=== PATIENT | female | born 1990 | race Caucasian/White ===

== ENCOUNTER → 2022-12-28 16:53 | Outpatient (CLI) | payer OTHER, SELFPAY ==
--- NOTE | 2022-12-28 16:55 | DI.US.S_ITS ---
PROCEDURE: US OB <= 14 WEEKS FETUS INDICATIONS: DATING OUTSIDE/PRIOR DATING DATA: Last menstrual period (LMP): Unknown. LMP-based estimated date of delivery (NISREEN): Unknown. First dating scan (date and location): 12/28/2022. Estimated date of delivery (NISREEN) from first dating scan: 08/20/2023. TECHNIQUE: Real-time scanning was performed of the fetus and maternal pelvic organs, with image documentation. Endovaginal scanning was also performed to better visualize the fetus and maternal ovaries. COMPARISON: None. FINDINGS: Embryo: Single live intrauterine is present with crown rump length measuring 6 mm corresponding to 6 weeks 3 days. There is a questionable appearance of small subchorionic hemorrhage measuring approximately 8 mm. Heart rate: 104 beats per minute Maternal organs: Ovaries demonstrate right corpus luteal cyst. IMPRESSION: Single live intrauterine with ultrasound gestational age of 6 weeks 3 days. Note heart tones are measured at 104 beats per minute. Follow-up is recommended. Questionable small subchorionic hemorrhage. We strive to produce accurate, complete, and clear reports of imaging services. To assist us in improving patient care, this report was composed using standard report templates and voice recognition software. Therefore, it may contain abnormal punctuation, insertions and/or omissions. Occasional wrong-word or sound-alike substitutions may occur. Though we review the report and make efforts to correct it, we do recommend that the report be read carefully in proper context to recognize any text inaccuracies. Dictated by: Francesca Gillette M.D. on 12/29/2022 at 16:28 Approved by: Francesca Gillette M.D. on 12/29/2022 at 16:30
== END ==
PROVIDERS: Referring Provider Obstetrics & Gynecology; Visit Provider Obstetrics & Gynecology
DX: O20.0 Threatened abortion (principal); Z3A.01 Less than 8 weeks gestation of pregnancy
CPT/HCPCS: 76801; 76817

== ENCOUNTER → 2023-01-10 15:14 | Outpatient (CLI) | payer OTHER, SELFPAY ==
[2023-01-10 21:18] LABS: Urine N gonorrhoeae NOT DETECTED
[2023-01-10 21:29] LABS: Urine Chlamydia NOT DETECTED
== END ==
PROVIDERS: Visit Provider Specialist
DX: Z34.81 Encounter for supervision of other normal pregnancy, first trimester (principal); Z3A.09 9 weeks gestation of pregnancy
CPT/HCPCS: 87491; 87591

== ENCOUNTER → 2023-02-07 11:54 | Outpatient (CLI) | payer OTHER, SELFPAY ==
[2023-02-07 12:28] LABS: Miscellaneous to LabCorp NATERA KIT
[2023-02-07 13:07] LABS: Add Manual Diff / Slide Review NO; Basophils Absolute Auto 0 /uL (0-100); Basophils Percent Auto 0.2 % (0-2); Eosinophils Absolute Auto 100 /uL (0-450); Eosinophils Percent Auto 0.5 % (2-4); Hematocrit 37.3 % (36-46); Hemoglobin 12.7 g/dL (12.0-16.0); Lymphocytes Absolute Auto 2100 /uL (1100-4500); Mean Corpuscular Volume 79.5 fL (80-100); Monocytes Absolute Auto 700 /uL (0-900); Monocytes Percent Auto 7.1 % (3-14); Neutrophils Absolute Auto 7600 /uL (1500-7000); Neutrophils Percent Auto 72.2 % (50-75); Platelet Count 344 X10^3/uL (150-400); Red Blood Cell Count 4.69 X10^6/uL (4.0-5.2); Red Cell Distribution Width 12.6 % (11.6-14.8); White Blood Cell Count 10.6 X10^3/uL (4.5-11.0)
[2023-02-07 13:37] LABS: Alanine Aminotransferase 25 IU/L (<35); Aspartate Aminotransferase 21 IU/L (14-36); BUN Creatinine Ratio 17.9 (6-22); Blood Urea Nitrogen 10 mg/dL (7-17); Estimated Glomerular Filt Rate > 60 mL/min (>60); Uric Acid 3.2 mg/dL (2.5-6.2)
[2023-02-07 16:16] LABS: Protein (Total) Urine Random 15 mg/dL (0-12)
[2023-02-08 10:51] LABS: Varicella IgG Antibody 554 index (Immune >165)
[2023-02-09 03:23] LABS: RPR Screen Non Reactive (Non Reactive)
[2023-02-09 16:21] LABS: Hepatitis B Surface Antigen NEGATIVE s/c (NEGATIVE); Rubella Antibody IgG 15.2 IU/mL (>15)
[2023-02-09 16:46] LABS: HIV 1 & 2 Ab/Ag 4th Gen Combo NEGATIVE (NEGATIVE); Hep C Virus Ab w/Reflex Quant NEGATIVE s/c (NEGATIVE)
== END ==
PROVIDERS: Referring Provider Obstetrics & Gynecology; Visit Provider Obstetrics & Gynecology
DX: O09.511 Supervision of elderly primigravida, first trimester (principal); Z34.81 Encounter for supervision of other normal pregnancy, first trimester
CPT/HCPCS: 36415; 80055; 82565; 84156; 84450; 84460; 84520; 84550; 86787; 86803; 86850; 86900; 86901; 87086; 87389

== ENCOUNTER → 2023-03-07 11:49 | Outpatient (CLI) | payer OTHER, SELFPAY ==
[2023-03-10 22:09] LABS: AFP Value 30.6 ng/mL (.); Gest Age on Col Date 16.3 weeks (.); Gestational Age As provided (.); Insulin Dep Diabetes No (.); OSBR Risk 1IN 10000 (.); Results Report (.); Test Results *Screen Negative* (.)
== END ==
PROVIDERS: Referring Provider Obstetrics & Gynecology; Visit Provider Obstetrics & Gynecology
DX: Z34.82 Encounter for supervision of other normal pregnancy, second trimester (principal); Z3A.16 16 weeks gestation of pregnancy
CPT/HCPCS: 36415; 82105

== ENCOUNTER → 2023-03-31 12:02 | Outpatient (CLI) | payer OTHER, SELFPAY ==
--- NOTE | 2023-03-31 12:04 | DI.US.S_ITS ---
PROCEDURE: US OB >= 14 WEEKS FETUS INDICATIONS: Anatomy scan OUTSIDE/PRIOR DATING DATA: Last menstrual period (LMP): Unknown. LMP-based estimated date of delivery (NISREEN): Unknown. First dating scan (date and location): 12/28/2022. Estimated date of delivery (NISREEN) from first dating scan: 08/20/2023. The calculations are made using the ultrasound NISREEN of 08/20/2023. TECHNIQUE: Real-time scanning was performed of the fetus, with image documentation and biometric measurements. COMPARISON: [facility], US, US OB >= 14 WEEKS FETUS, 03/07/2023, 11:37. FINDINGS: General: A single living intrauterine gestation is present. Presentation: Breech. Placenta: Placental position is anterior fundal, without previa. Amniotic fluid index: 10 cm, normal range is 5-24 cm. Single deepest vertical pocket is 2.7 cm. heart rate: 137 beats per minute. Maternal cervical canal: 4 cm long. Normal lower limit is 2.5 cm. biometrics: Biparietal diameter: 4.6 cm, 20 weeks 1 day Head circumference: 17.0 cm, 19 weeks 4 days Abdominal circumference: 14.7 cm, 20 weeks 0 days Femur length: 3.2 cm, 20 weeks 0 days Clinically estimated gestational age: 19 weeks 5 days Composite gestational age from present scan: 20 weeks 0 days Estimated weight and percentile: 323 g, 68th percentile Anatomic survey: Neuro: Ventricles are non-dilated at less than 10 mm. Cisterna magna is normal at 3-11 mm. Cerebellum is normal in size and morphology. Nuchal skin fold: Normal at less than 6 mm between 14-21 weeks gestational age. Face: Nose and lips, facial profile are normal. Spine: No evidence for spina bifida. Heart: 4-chambered heart is present. Outflow tracts are not well seen. Diaphragm: Diaphragm is intact. Stomach: Left-sided stomach is present. Kidneys: No hydronephrosis. Normal is less than 5 mm in 2nd trimester, less than 7 mm in 3rd trimester. Cord: 3-vessel cord has orthotopic insertion. Bladder: Normal in size. Extremities: All 4 extremities identified. IMPRESSION: 1. Swift living intrauterine at 20 weeks 0 days based on today's ultrasound. Fetus is in the 68th percentile for weight. 2. Normal placenta and amniotic fluid. 3. cardiac outflow tracts are not well seen. Otherwise normal anatomic survey. Recommend follow-up OB ultrasound. We strive to produce accurate, complete, and clear reports of imaging services. To assist us in improving patient care, this report was composed using standard report templates and voice recognition software. Therefore, it may contain abnormal punctuation, insertions and/or omissions. Occasional wrong-word or sound-alike substitutions may occur. Though we review the report and make efforts to correct it, we do recommend that the report be read carefully in proper context to recognize any text inaccuracies. Dictated by: Benjamín Salinas M.D. on 03/31/2023 at 20:14 Approved by: Benjamín Salinas M.D. on 03/31/2023 at 20:23
== END ==
PROVIDERS: Referring Provider Obstetrics & Gynecology; Visit Provider Obstetrics & Gynecology
DX: Z34.92 Encounter for supervision of normal pregnancy, unspecified, second trimester (principal); Z3A.20 20 weeks gestation of pregnancy
CPT/HCPCS: 76811

== ENCOUNTER → 2023-04-14 11:25 | Outpatient (CLI) | payer OTHER, SELFPAY ==
--- NOTE | 2023-04-14 11:26 | DI.US.S_ITS ---
PROCEDURE: US OB FOLLOW UP INDICATIONS: OUTFLOW TRACTS NOT VISUALIZED on anatomy study from 03/31/2023 OUTSIDE/PRIOR DATING DATA: Last menstrual period (LMP): Unknown. LMP-based estimated date of delivery (NISREEN): Unknown. First dating scan (date and location): 12/28/2022. Estimated date of delivery (NISREEN) from first dating scan: 08/20/2023. The calculations are made using the ultrasound NISREEN of 08/20/2023. TECHNIQUE: Real-time scanning was performed of the fetus, with image documentation. Endovaginal scanning: Not performed COMPARISON: [facility], , US OB >= 14 WEEKS FETUS, 03/31/2023, 12:38. FINDINGS: A single living intrauterine gestation is present. Presentation: Vertex. Placenta: Placental position is fundal, without previa. Amniotic fluid index: 13.3 cm, normal range is 5-24 cm. Single deepest vertical pocket is 4.2 cm. heart rate: 155 beats per minute. Maternal cervical canal: 4.3 cm long. Normal lower limit is 2.5 cm. Estimated gestational age from initial scan: 21 weeks 5 days. RVOT and LVOT well seen and unremarkable. IMPRESSION: 1. Single living 2nd trimester intrauterine with no sonographic evidence of complications. 2. LVOT and RVOT are unremarkable. This completes a normal 2nd trimester anatomical survey. Dictated by: Sergio Augustine M.D. on 04/14/2023 at 15:37 Approved by: Sergio Augustine M.D. on 04/14/2023 at 15:41
== END ==
LOC: US 11:25
PROVIDERS: Referring Provider Obstetrics & Gynecology; Visit Provider Obstetrics & Gynecology
DX: Z34.92 Encounter for supervision of normal pregnancy, unspecified, second trimester (principal); Z3A.21 21 weeks gestation of pregnancy
CPT/HCPCS: 76816

== ENCOUNTER → 2023-05-08 09:01 | Outpatient (CLI) | payer OTHER, SELFPAY ==
[2023-05-08 10:59] LABS: Hematocrit 32.2 % (36-46); Hemoglobin 10.9 g/dL (12.0-16.0)
[2023-05-08 11:38] LABS: GTT (PREG) 1 Hour PP 50gm Dose 124 mg/dL (76-139)
== END ==
PROVIDERS: Referring Provider Specialist; Visit Provider Specialist
DX: Z34.82 Encounter for supervision of other normal pregnancy, second trimester (principal); Z3A.26 26 weeks gestation of pregnancy
CPT/HCPCS: 36415; 82950; 85014; 85018

== ENCOUNTER 2023-05-28 19:52 | Outpatient (CLI) | payer OTHER, SELFPAY ==
[2023-05-28 21:09] LABS: Add Manual Diff / Slide Review NO; Basophils Absolute Auto 0 /uL (0-100); Basophils Percent Auto 0.2 % (0-2); Eosinophils Absolute Auto 100 /uL (0-450); Eosinophils Percent Auto 1.2 % (2-4); Hematocrit 32.5 % (36-46); Lymphocytes Absolute Auto 2100 /uL (1100-4500); Lymphocytes Percent Auto 21.7 % (25-40); Mean Corpuscular HGB Conc 33.9 % (30-36); Mean Corpuscular Hemoglobin 26.6 PG (26-34); Mean Corpuscular Volume 78.3 fL (80-100); Monocytes Absolute Auto 800 /uL (0-900); Monocytes Percent Auto 8.2 % (3-14); Neutrophils Absolute Auto 6700 /uL (1500-7000); Neutrophils Percent Auto 68.7 % (50-75); Platelet Count 300 X10^3/uL (150-400); Red Blood Cell Count 4.15 X10^6/uL (4.0-5.2); Red Cell Distribution Width 12.9 % (11.6-14.8); White Blood Cell Count 9.8 X10^3/uL (4.5-11.0)
[2023-05-28 21:12] LABS: Aspartate Aminotransferase 20 IU/L (14-36); BUN Creatinine Ratio 23.3 (6-22); Blood Urea Nitrogen 10 mg/dL (7-17); Estimated Glomerular Filt Rate > 60 mL/min (>60); Uric Acid 3.1 mg/dL (2.5-6.2)
[2023-05-28 21:31] LABS: Alanine Aminotransferase 15 IU/L (<35)
[2023-05-28 21:50] LABS: Creatinine Urine Random 35.6 mg/dL; Protein (Total) Urine Random 18 mg/dL (0-12)
[2023-05-28 22:04] VITALS: BP 140/93
== END 2023-05-28 21:50 | disposition home or self-care (01) ==
LOC: OB 06-01 10:29
PROVIDERS: Referring Provider Obstetrics & Gynecology; Visit Provider Obstetrics & Gynecology
DX: O10.913 Unspecified pre-existing hypertension complicating pregnancy, third trimester (principal); Z3A.28 28 weeks gestation of pregnancy
CPT/HCPCS: 59025; 82570; 84156; 84450; 84460; 84550; 85025; G0378; G0379

== ENCOUNTER 2023-06-15 18:58 | Observation (INO) | payer OTHER, SELFPAY ==
[2023-06-15 19:50] LABS: Appearance Urine UA CLEAR; Bilirubin Urine UA NEGATIVE (NEGATIVE); Color Urine UA YELLOW; Glucose Urine UA NEGATIVE (Negative); Ketones Urine UA NEGATIVE (NEGATIVE); Leukocyte Esterase Urine UA 1+ (NEGATIVE); Nitrite Urine UA NEGATIVE (Negative); Occult Blood Urine UA TRACE-INTACT (Negative); Protein Urine UA NEGATIVE (Negative); Urobilinogen Urine UA 0.2 E.U./dL (0.2)
[2023-06-15 20:14] LABS: pH Urine UA 6.5 (4.5-8.0)
[2023-06-15 20:35] LABS: Bacteria Urine None Seen; Culture Indicated Urine Specimen Cultured; RBC Urine 0-1/HPF (0-5/HPF); Squamous Epithelial Cell Urine 1-5 /HPF (0-5/HPF); Urine Volume 10mL (spun); WBC Urine 1-5/HPF (0-5/HPF)
--- NOTE | 2023-06-15 21:02 | PM.OBTRLD ---
Visit Information Visit Information Date of evaluation: 06/15/23 Primary OB Provider: Marcia Cardoza On-call OB Provider: Flakito Arellano Reason for Evaluation: Yes other Comments/Additional reasons for admission: Vaginal bleeding starting this afternoon when voiding. Small amount, spotting on pad without large clots. Called after hours line and advised to present for evaluation. Normal movement. Denies leakage of fluid, pelvic cramping or contractions. Some urinary urgency associated w/baby pressing on bladder, otherwise denies dysuria or frequency beyond baseline. Has consistent vaginal discharge throughout , no change in appearnce or consistency and not painful. No recent intercourse or vaginal trauma. Does have chronic hemorrhoids but bleeding from front, not back. [facility] Medical History (Updated 06/15/23 @ 23:35 by Flakito Arellano MD) Migraine without aura Depression White coat syndrome with hypertension Surgical History (Updated 12/29/22 @ 11:10 by Emerita Ruiz RN) H/O rhinoplasty [place] teeth extracted History of removal of skin mole Family History (Updated 12/29/22 @ 11:20 by Emerita Ruiz, RN) Mother Menorrhagia History of hysterectomy Hypertension Hyperlipidemia Sister Menorrhagia PCOS (polycystic ovarian syndrome) Sister Menorrhagia Endometriosis Family/Other Menorrhagia Father Skin cancer Prostate cancer Grandfather Skin cancer Prostate cancer Bladder cancer Family/Other Prostate cancer Grandmother Breast cancer Lymphoma Grandmother Heart disease Diabetes mellitus Heart attack Hypertension Hyperlipidemia Grandfather Hyperlipidemia Hypertension Heart disease Stroke S/P CABG x 4 Skin cancer Social History marital status: number of children: 0 household members: spouse lives independently: Yes caregiver/support person: No housing: house pets and animals: No education level: college (bachelor's degree) occupational status: employed 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 travel history: recent ([place]) seatbelt use: always helmet use: Yes water heater temp set < 120 deg: Yes working smoke detector in home: Yes fire extinguisher in home: Yes carbon monox detector in home: Yes firearms in home: Yes firearms unloaded and locked: No (pt will make sure they are before the child is mobile) do you feel safe at home: Yes Smoking Status: Former smoker Tobacco: How many years used: 16 second hand exposure: No alcohol intake: former (very occasionally when not ) substance use type: does not use during the past year weight has: decreased > 10 lbs (Rx'd phentermine) well-balanced diet: daily or most days daily servings fruits/ve or more times/day caffeine: No Type(s) of exercise: walking, weight lifting and running frequency: daily additional social history: Pelvic rest due to heavy spotting, anxious to get back to a more normal exercise level as soon as it's safe. Review of Systems Review of Systems ROS: Yes All systems reviewed with the patient and are negative except as otherwise documented Exam Narrative Exam Narrative: General: Well-nourished, no distress HEENT: NC/AT, EOMI, moist mucous membranes CV: RRR, normal S1 S2, no m/g/r Resp: CTAB Abd: Gravid, soft, NTND, +BS : Normal external female external genitalia, vaginal mucosa pink and moist, no evidence of trauma, moderate leukorrhea of with light pink tinge, os closed with no active bleeding visualized Ext: Full ROM, no edema Skin: No rash or lesions Neuro: A&O x3, normal tone, no focal deficits Objective Imaging US - OB limited: Radiologist's impression: PROCEDURE: US OB LIMITED INDICATIONS: bleeding - check BONIFACIO and placenta OUTSIDE/PRIOR DATING DATA: Last menstrual period (LMP): Unknown LMP-based estimated date of delivery (NISREEN): Unknown First dating scan (date and location): 12/28/2022 Estimated date of delivery (NISREEN) from first dating scan: 08/20/2023 The calculations are made using the working NISREEN of 08/20/2023 TECHNIQUE: Real-time scanning was performed of the fetus, with image documentation. Endovaginal scanning: Performed COMPARISON: [facility], , US OB >= 14 WEEKS FETUS, 06/15/2023, 10:57. FINDINGS: General: A single living intrauterine gestation is present. Presentation: Vertex. Placenta: Placental position is fundal, without previa. Amniotic fluid index: 13.7 cm, normal range is 5-24 cm. Single deepest vertical pocket is 5.2 cm. heart rate: 120 beats per minute. Maternal cervical canal: 3.1 cm long. Normal lower limit is 2.5 cm. Estimated gestational age from initial scan: 30 weeks, 4 days. IMPRESSION: 1. Single live intrauterine gestation with fetus in vertex presentation. heart rate is 120 beats per minute. Normal amount of amniotic fluid. BONIFACIO equals 13.7 cm. 2. Placenta location is fundal. No placenta previa. No evidence of placental abruption. Cervix is closed and measures 3.1 cm in length. Dictated by: Sam Alberts M.D. on 06/15/2023 at 22:35 Approved by: Sam Alberts M.D. on 06/15/2023 at 22:37 Labs Labs: Laboratory Results - last 24 hr 06/15/23 19:20 Urine Color Yellow Urine Appearance Clear Urine pH 6.5 Ur Specific [place] 1.010 Urine Protein Negative Urine Glucose (UA) Negative Urine Ketones Negative Urine Occult Blood Trace-intact Urine Nitrate Negative Urine Bilirubin Negative Urine Urobilinogen 0.2 Ur Leukocyte Esterase 1+ H Urine RBC 0-1/hpf Urine WBC 1-5/hpf Ur Squamous Epith Cells 1-5 /hpf Urine Bacteria None seen Ur Culture Indicated? Specimen cultured Vol Urine Centrifuged 10ml (spun) Evaluation Evaluation Baseline heart rate: 135 Variability: Moderate (11-25) monitor accelerations: Present Monitor Decelerations: Absent Category of Tracing: Reactive Status: Category l Cervical dilation (cm): 0 Cervical effacement (%): 0 station: -3 Diagnosis, Plan/Disposition Final Diagnosis (1) Vaginal bleeding in patient after first trimester: Status: Acute (2) Hemorrhoids during in third trimester: Status: Acute (3) Hypertension affecting in third trimester: Status: Acute Plan/Disposition Plan: Unclear cause of light spotting. UA with LE but not bacteria or nitrite, culture pending. Wet prep negative, GC/CT pending. FHT cat 1 and reactive for GA. US reassuring with no e/o abruption, normal cervical length. May be old blood from previous ADRIANA. Low suspicion for labor. BP initially elevated to moderate range but improved after administration of evening labetalol dose. Discharge home w/return precautions. OB Disposition: home
--- NOTE | 2023-06-15 21:15 | DI.US.S_ITS ---
PROCEDURE: US OB LIMITED INDICATIONS: bleeding - check BONIFACIO and placenta OUTSIDE/PRIOR DATING DATA: Last menstrual period (LMP): Unknown LMP-based estimated date of delivery (NISEREN): Unknown First dating scan (date and location): 12/28/2022 Estimated date of delivery (NISREEN) from first dating scan: 08/20/2023 The calculations are made using the working NISREEN of 08/20/2023 TECHNIQUE: Real-time scanning was performed of the fetus, with image documentation. Endovaginal scanning: Performed COMPARISON: [facility], US, US OB >= 14 WEEKS FETUS, 06/15/2023, 10:57. FINDINGS: General: A single living intrauterine gestation is present. Presentation: Vertex. Placenta: Placental position is fundal, without previa. Amniotic fluid index: 13.7 cm, normal range is 5-24 cm. Single deepest vertical pocket is 5.2 cm. heart rate: 120 beats per minute. Maternal cervical canal: 3.1 cm long. Normal lower limit is 2.5 cm. Estimated gestational age from initial scan: 30 weeks, 4 days. IMPRESSION: 1. Single live intrauterine gestation with fetus in vertex presentation. heart rate is 120 beats per minute. Normal amount of amniotic fluid. BONIFACIO equals 13.7 cm. 2. Placenta location is fundal. No placenta previa. No evidence of placental abruption. Cervix is closed and measures 3.1 cm in length. We strive to produce accurate, complete, and clear reports of imaging services. To assist us in improving patient care, this report was composed using standard report templates and voice recognition software. Therefore, it may contain abnormal punctuation, insertions and/or omissions. Occasional wrong-word or sound-alike substitutions may occur. Though we review the report and make efforts to correct it, we do recommend that the report be read carefully in proper context to recognize any text inaccuracies. Dictated by: Sam Alberts M.D. on 06/15/2023 at 22:35 Approved by: Sam Alberts M.D. on 06/15/2023 at 22:37
[2023-06-21 20:01] LABS: Chlamydia trachomatis Negative (Negative); Mycoplasma genitalium Negative (Negative); Neisseria gonorrhoeae Negative (Negative)
== END 2023-06-15 21:47 | disposition home or self-care (01) ==
LOC: LABOR 19:01
PROVIDERS: Admitting Provider Family Medicine; Referring Provider Obstetrics & Gynecology; Visit Provider Family Medicine
DX: O26.853 Spotting complicating pregnancy, third trimester (principal); Z3A.30 30 weeks gestation of pregnancy; O22.43 Hemorrhoids in pregnancy, third trimester; O16.3 Unspecified maternal hypertension, third trimester
CPT/HCPCS: 59025; 76815; 81001; 87086; 87210; 87491; 87563; 87591; G0378; G0379

== ENCOUNTER → 2023-06-19 12:43 | Outpatient (CLI) | payer OTHER, SELFPAY ==
[2023-06-19 13:32] LABS: Alanine Aminotransferase 16 IU/L (<35); Albumin 3.5 g/dL (3.5-5.0); Albumin Globulin Ratio 1.1 (1.0-2.8); Alkaline Phosphatase 68 U/L (38-126); Aspartate Aminotransferase 20 IU/L (14-36); Bilirubin Total 0.5 mg/dL (0.2-1.3); Bilirubin Unconjugated 0.2 mg/dL (0.0-1.1); Globulin 3.3 g/dL (1.7-4.1); HEMOLYSIS < 15 (0-50); Total Protein 6.8 g/dL (6.3-8.2)
== END ==
PROVIDERS: Referring Provider Obstetrics & Gynecology; Visit Provider Obstetrics & Gynecology
DX: O99.713 Diseases of the skin and subcutaneous tissue complicating pregnancy, third trimester (principal); L29.9 Pruritus, unspecified
CPT/HCPCS: 36415; 80076; 82239

== ENCOUNTER 2023-06-29 09:41 | Outpatient (CLI) | payer OTHER, SELFPAY | END 2023-06-29 10:29 | disposition home or self-care (01) | LOC: LABOR 10:30 → OB 06-30 12:04 | PROVIDERS: Referring Provider Obstetrics & Gynecology; Visit Provider Obstetrics & Gynecology | DX: O13.3 Gestational [pregnancy-induced] hypertension without significant proteinuria, third trimester (principal); O09.523 Supervision of elderly multigravida, third trimester; Z3A.32 32 weeks gestation of pregnancy | CPT/HCPCS: 59025; G0378; G0379 ==

== ENCOUNTER 2023-07-06 10:55 | Outpatient (CLI) | payer OTHER, SELFPAY ==
--- NOTE | 2023-07-06 12:56 | PM.OBTRLD ---
Visit Information Visit Information Date of evaluation: 07/06/23 Primary OB Provider: Marcia Cardoza On-call OB Provider: Misty Schmitz Reason for Evaluation: Yes non-stress test non-stress test reason: hypertension/pre-eclampsia Comments/Additional reasons for admission: 2 para 0 chronic hypertension on labetalol 200 mg t.i.d. at 33 weeks 3 days Vital Signs Vital Signs: Blood pressure 129/81, pulse of 92 PFSH Medical History (Updated 07/06/23 @ 12:58 by Misty Schmitz MD) Migraine without aura Depression White coat syndrome with hypertension Surgical History (Updated 12/29/22 @ 11:10 by Emerita Ruiz, RN) H/O rhinoplasty [place] teeth extracted History of removal of skin mole Family History (Updated 12/29/22 @ 11:20 by Emerita Ruiz, RN) Mother Menorrhagia History of hysterectomy Hypertension Hyperlipidemia Sister Menorrhagia PCOS (polycystic ovarian syndrome) Sister Menorrhagia Endometriosis Family/Other Menorrhagia Father Skin cancer Prostate cancer Grandfather Skin cancer Prostate cancer Bladder cancer Family/Other Prostate cancer Grandmother Breast cancer Lymphoma Grandmother Heart disease Diabetes mellitus Heart attack Hypertension Hyperlipidemia Grandfather Hyperlipidemia Hypertension Heart disease Stroke S/P CABG x 4 Skin cancer Social History marital status: number of children: 0 household members: spouse lives independently: Yes caregiver/support person: No housing: house pets and animals: No education level: college (bachelor's degree) occupational status: employed 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 travel history: recent ([place]) seatbelt use: always helmet use: Yes water heater temp set < 120 deg: Yes working smoke detector in home: Yes fire extinguisher in home: Yes carbon monox detector in home: Yes firearms in home: Yes firearms unloaded and locked: No (pt will make sure they are before the child is mobile) do you feel safe at home: Yes Smoking Status: Former smoker Tobacco: How many years used: 16 second hand exposure: No alcohol intake: former (very occasionally when not ) substance use type: does not use during the past year weight has: decreased > 10 lbs (Rx'd phentermine) well-balanced diet: daily or most days daily servings fruits/ve or more times/day caffeine: No Type(s) of exercise: walking, weight lifting and running frequency: daily additional social history: Pelvic rest due to heavy spotting, anxious to get back to a more normal exercise level as soon as it's safe. Evaluation Evaluation Baseline heart rate: 140 Variability: Moderate (11-25) monitor accelerations: Present Monitor Decelerations: Absent Contraction Frequency (minutes): 0 Category of Tracing: Reactive Status: Category l Diagnosis, Plan/Disposition Final Diagnosis (1) Hypertension affecting in third trimester: Status: Acute (2) 33 weeks gestation of : Status: Acute Plan/Disposition Plan: Reactive nonstress test. Continue weekly visits and twice weekly nonstress test OB Disposition: home
== END 2023-07-06 11:35 | disposition home or self-care (01) ==
LOC: LABOR 11:10 → OB 07-14 14:32
PROVIDERS: Referring Provider Specialist; Visit Provider Specialist
DX: O16.3 Unspecified maternal hypertension, third trimester (principal); Z3A.33 33 weeks gestation of pregnancy
CPT/HCPCS: 59025; G0378; G0379

== ENCOUNTER 2023-07-13 14:28 | Outpatient (CLI) | payer OTHER, SELFPAY | END 2023-07-13 15:12 | disposition home or self-care (01) | LOC: OB 07-14 14:26 | PROVIDERS: Referring Provider Specialist; Visit Provider Specialist | DX: O09.523 Supervision of elderly multigravida, third trimester (principal); O10.913 Unspecified pre-existing hypertension complicating pregnancy, third trimester; Z3A.34 34 weeks gestation of pregnancy | CPT/HCPCS: 59025; G0378; G0379 ==

== ENCOUNTER 2023-07-20 15:19 | Outpatient (CLI) | payer OTHER, SELFPAY ==
--- NOTE | 2023-07-20 16:59 | PM.OBTRLD ---
Visit Information Visit Information Date of evaluation: 07/20/23 Primary OB Provider: Misty Schmitz Reason for Evaluation: Yes non-stress test non-stress test reason: hypertension/pre-eclampsia Vital Signs Vital Signs: Blood pressures while on the unit 145/87 to 169/96 on initial reading. Pulse of 90 temperature 97.5? [facility] Medical History (Updated 07/20/23 @ 17:01 by Misty Schmitz MD) Migraine without aura Depression White coat syndrome with hypertension Surgical History (Updated 12/29/22 @ 11:10 by Emerita Ruiz, RN) H/O rhinoplasty [place] teeth extracted History of removal of skin mole Family History (Updated 12/29/22 @ 11:20 by Emerita Ruiz, RN) Mother Menorrhagia History of hysterectomy Hypertension Hyperlipidemia Sister Menorrhagia PCOS (polycystic ovarian syndrome) Sister Menorrhagia Endometriosis Family/Other Menorrhagia Father Skin cancer Prostate cancer Grandfather Skin cancer Prostate cancer Bladder cancer Family/Other Prostate cancer Grandmother Breast cancer Lymphoma Grandmother Heart disease Diabetes mellitus Heart attack Hypertension Hyperlipidemia Grandfather Hyperlipidemia Hypertension Heart disease Stroke S/P CABG x 4 Skin cancer Social History marital status: number of children: 0 household members: spouse lives independently: Yes caregiver/support person: No housing: house pets and animals: No education level: college (bachelor's degree) occupational status: employed 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 travel history: recent ([place]) seatbelt use: always helmet use: Yes water heater temp set < 120 deg: Yes working smoke detector in home: Yes fire extinguisher in home: Yes carbon monox detector in home: Yes firearms in home: Yes firearms unloaded and locked: No (pt will make sure they are before the child is mobile) do you feel safe at home: Yes Smoking Status: Former smoker Tobacco: How many years used: 16 second hand exposure: No alcohol intake: former (very occasionally when not ) substance use type: does not use during the past year weight has: decreased > 10 lbs (Rx'd phentermine) well-balanced diet: daily or most days daily servings fruits/ve or more times/day caffeine: No Type(s) of exercise: walking, weight lifting and running frequency: daily additional social history: Pelvic rest due to heavy spotting, anxious to get back to a more normal exercise level as soon as it's safe. Review of Systems Review of Systems Narrative: Last OB appointment the patient was advised to increase her labetalol. She did not think that increasing her mid day labetalol was helping her evening blood pressures. She had not tried yet going up to 300 mg t.i.d. which was the next step. Patient has some mild nausea. No headaches. Good movement. No leakage of fluid. No vaginal bleeding. Evaluation Evaluation Baseline heart rate: 140 Variability: Moderate (11-25) monitor accelerations: Present Monitor Decelerations: Absent Category of Tracing: Reactive Status: Category l Diagnosis, Plan/Disposition Final Diagnosis (1) Hypertension affecting in third trimester: Status: Acute (2) AMA (advanced maternal age) primigravida 35+: Status: Acute (3) 35 weeks gestation of : Status: Acute Plan/Disposition Plan: Patient with hypertension on labetalol. Patient's blood pressures are still higher than we would like. Patient will increase her labetalol to 300 mg t.i.d.. She will continue to monitor her blood pressures at home. She may need to have nifedipine added in to her regiment. Patient will return in 4 days for repeat nonstress test and has an appointment in 8 days in the office. Patient is scheduled for cervical ripening on the with labor induction on the . OB Disposition: home
== END 2023-07-20 16:50 | disposition home or self-care (01) ==
LOC: LABOR 15:53 → OB 07-24 10:37
PROVIDERS: Referring Provider Specialist; Visit Provider Specialist
DX: Z36.9 Encounter for antenatal screening, unspecified (principal); O09.513 Supervision of elderly primigravida, third trimester; O16.3 Unspecified maternal hypertension, third trimester; Z3A.35 35 weeks gestation of pregnancy
CPT/HCPCS: 59025; G0378; G0379

== ENCOUNTER 2023-07-24 15:05 | Outpatient (CLI) | payer OTHER, SELFPAY ==
[2023-07-24 16:38] LABS: Add Manual Diff / Slide Review NO; Basophils Absolute Auto 0 /uL (0-100); Basophils Percent Auto 0.1 % (0-2); Eosinophils Absolute Auto 100 /uL (0-450); Hematocrit 33.6 % (36-46); Hemoglobin 11.2 g/dL (12.0-16.0); Lymphocytes Absolute Auto 1800 /uL (1100-4500); Lymphocytes Percent Auto 19.5 % (25-40); Mean Corpuscular HGB Conc 33.4 % (30-36); Mean Corpuscular Hemoglobin 26.7 PG (26-34); Mean Corpuscular Volume 79.9 fL (80-100); Monocytes Absolute Auto 1000 /uL (0-900); Monocytes Percent Auto 11.2 % (3-14); Neutrophils Absolute Auto 6200 /uL (1500-7000); Neutrophils Percent Auto 68.2 % (50-75); Platelet Count 268 X10^3/uL (150-400); Red Cell Distribution Width 14.5 % (11.6-14.8)
[2023-07-24 16:49] LABS: HEMOLYSIS < 15 (0-50); Potassium 3.5 mmol/L (3.4-5.1)
[2023-07-24 16:50] LABS: Alanine Aminotransferase 23 IU/L (<35); Albumin 3.8 g/dL (3.5-5.0); Albumin Globulin Ratio 1.2 (1.0-2.8); Alkaline Phosphatase 101 U/L (38-126); Aspartate Aminotransferase 26 IU/L (14-36); BUN Creatinine Ratio 12.5 (6-22); Bilirubin Total 0.4 mg/dL (0.2-1.3); Blood Urea Nitrogen 6 mg/dL (7-17); Calcium 9.4 mg/dL (8.4-10.2); Carbon Dioxide 21 mmol/L (22-32); Chloride 107 mmol/L (98-107); Estimated Glomerular Filt Rate > 60 mL/min (>60); Globulin 3.1 g/dL (1.7-4.1); Glucose 83 mg/dL (70-100); Sodium 135 mmol/L (137-145); Total Protein 6.9 g/dL (6.3-8.2); Uric Acid 4.5 mg/dL (2.5-6.2)
--- NOTE | 2023-07-24 17:16 | P.TNLD_ITS ---
Visit Information Visit Information Date of evaluation: 07/24/23 Primary OB Provider: Misty Schmitz Reason for Evaluation: Yes non-stress test non-stress test reason: hypertension/pre-eclampsia Vital Signs Vital Signs: Blood pressure 119/79 pulse of 86 temperature 36.2? [facility] Medical History (Updated 07/24/23 @ 17:18 by Misty Schmitz MD) Migraine without aura Depression White coat syndrome with hypertension Surgical History (Updated 12/29/22 @ 11:10 by Emerita Ruiz, RN) H/O rhinoplasty [place] teeth extracted History of removal of skin mole Family History (Updated 12/29/22 @ 11:20 by Emerita Ruiz, JANET) Mother Menorrhagia History of hysterectomy Hypertension Hyperlipidemia Sister Menorrhagia PCOS (polycystic ovarian syndrome) Sister Menorrhagia Endometriosis Family/Other Menorrhagia Father Skin cancer Prostate cancer Grandfather Skin cancer Prostate cancer Bladder cancer Family/Other Prostate cancer Grandmother Breast cancer Lymphoma Grandmother Heart disease Diabetes mellitus Heart attack Hypertension Hyperlipidemia Grandfather Hyperlipidemia Hypertension Heart disease Stroke S/P CABG x 4 Skin cancer Social History marital status: number of children: 0 household members: spouse lives independently: Yes caregiver/support person: No housing: house pets and animals: No education level: college (bachelor's degree) occupational status: employed 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 travel history: recent ([place]) seatbelt use: always helmet use: Yes water heater temp set < 120 deg: Yes working smoke detector in home: Yes fire extinguisher in home: Yes carbon monox detector in home: Yes firearms in home: Yes firearms unloaded and locked: No (pt will make sure they are before the child is mobile) do you feel safe at home: Yes Smoking Status: Former smoker Tobacco: How many years used: 16 second hand exposure: No alcohol intake: former (very occasionally when not ) substance use type: does not use during the past year weight has: decreased > 10 lbs (Rx'd phentermine) well-balanced diet: daily or most days daily servings fruits/ve or more times/day caffeine: No Type(s) of exercise: walking, weight lifting and running frequency: daily additional social history: Pelvic rest due to heavy spotting, anxious to get back to a more normal exercise level as soon as it's safe. Review of Systems Review of Systems Narrative: Patient complains of headache for a few hours after she takes her nifedipine that she started 2 days ago. She is feeling more lightheaded and dizzy. Her blood pressure has not changed significantly when she checks it at home. Good movement. No vaginal bleeding. No contractions. Objective Labs 07/24/23 16:16 07/24/23 16:16 Labs: Laboratory Results - last 24 hr 07/24/23 16:16 WBC 9.0 RBC 4.20 Hgb 11.2 L Hct 33.6 L MCV 79.9 L MCH 26.7 MCHC 33.4 RDW 14.5 Plt Count 268 Neut % (Auto) 68.2 Lymph % (Auto) 19.5 L Robertson % (Auto) 11.2 Eos % (Auto) 1.0 L Baso % (Auto) 0.1 Neut # (Auto) 6200 Lymph # (Auto) 1800 Robertson # (Auto) 1000 H Eos # (Auto) 100 Baso # (Auto) 0 Sodium 135 L Potassium 3.5 Chloride 107 Carbon Dioxide 21 L BUN 6 L Creatinine 0.48 L Estimated GFR > 60 BUN/Creatinine Ratio 12.5 Glucose 83 Uric Acid 4.5 Calcium 9.4 Total Bilirubin 0.4 AST 26 ALT 23 Alkaline Phosphatase 101 Total Protein 6.9 Albumin 3.8 Globulin 3.1 Albumin/Globulin Ratio 1.2 Evaluation Evaluation Baseline heart rate: 130 Variability: Moderate (11-25) monitor accelerations: Present Monitor Decelerations: Absent Contraction Frequency (minutes): 0 Category of Tracing: Reactive Status: Category l Diagnosis, Plan/Disposition Final Diagnosis (1) Hypertension affecting in third trimester: Status: Acute (2) AMA (advanced maternal age) primigravida 35+: Status: Acute (3) 36 weeks gestation of : Status: Acute Plan/Disposition Plan: Patient with hypertension affecting . Patient appears to have side effects from the 30 mg extended-release nifedipine that was added to her t.i.d. 300 mg labetalol. We will try 10 mg b.i.d. of nifedipine regular release. PIH labs drawn today and are normal. Urine protein is pending. Patient is scheduled for induction next week at 37 weeks. Precautions reviewed with the patient. Patient has office visit scheduled on 07/28/2023. OB Disposition: home
[2023-07-24 17:25] LABS: Creatinine Urine Random 65.4 mg/dL; Protein (Total) Urine Random 22 mg/dL (0-12); Protein Creatinine Ratio Urine 0.33 GRAM/24H
== END 2023-07-24 16:25 | disposition home or self-care (01) ==
LOC: LABOR 15:37 → OB 07-27 09:36
PROVIDERS: Referring Provider Specialist; Visit Provider Specialist
DX: O16.3 Unspecified maternal hypertension, third trimester (principal); O09.513 Supervision of elderly primigravida, third trimester; Z3A.36 36 weeks gestation of pregnancy; Z36.9 Encounter for antenatal screening, unspecified
CPT/HCPCS: 59025; 80053; 82570; 84156; 84550; 85025; G0378; G0379

== ENCOUNTER 2023-07-25 19:21 | Inpatient (IN) | payer OTHER, SELFPAY ==
--- NOTE | 2023-07-25 20:01 | PM.OBHP.1 ---
OB HPI Date/Time Date of admission: 07/25/23 Date Patient Seen: 07/25/23 Time Patient Seen: 20:01 History of Present Condition Chief complaint: Induction for preeclampsia : 2 Para: 0 Estimated Date of Delivery: 08/20/23 Estimated Gestational Age (weeks): 36 Narrative: Belen Govea is a 33 year old female at 36 weeks 2 days with chronic hypertension and proteinuria Indications Indication for induction OB: gestational HTN/pre-eclampsia History of Present care: good care, initiated at week # (6), number of visits (10) and pounds weight gain (31) Dating criteria: LMP confirmed by 1st trimester US Ultrasounds: normal mid trimester US Obstetrical complications: preeclampsia Medical complications: cardiovascular (Chronic hypertension) Narrative: Patient was being followed for chronic hypertension. She was complaining of a headache at her last biweekly nonstress test with PIH labs normal other than protein creatinine ratio of 3.3. Patient currently denies any headache but complaining of upper abdominal discomfort. Preadmission Labs Blood type: A (+) positive -: Antibody screen: negative, GBS status: unknown (Swab sent), HBsAG: negative, HIV: negative and RPR/VDLR: negative -: Chlamydia screen: not detected and Gonorrhea screen: not detected -: Rubella: immune and Varicella: immune Cell-free DNA: Normal 1 hr GTT: 124 Evaluation Evaluation Baseline heart rate: 140 Variability: Moderate (11-25) monitor accelerations: Present Monitor Decelerations: Absent Contraction Frequency (minutes): 0 Category of Tracing: Reactive Status: Category l Dilation (cm): 0 Effacement (%): 20 Dilation: Closed Effacement: 0-30% station: -1 Position of cervix: posterior Consistency: medium Rainey score: 3 PFSH Medical History (Updated 07/24/23 @ 17:18 by Misty Schmitz MD) Migraine without aura Depression White coat syndrome with hypertension Surgical History (Updated 12/29/22 @ 11:10 by Emerita Ruiz RN) H/O rhinoplasty [place] teeth extracted History of removal of skin mole Family History (Updated 12/29/22 @ 11:20 by Emerita Ruiz RN) Mother Menorrhagia History of hysterectomy Hypertension Hyperlipidemia Sister Menorrhagia PCOS (polycystic ovarian syndrome) Sister Menorrhagia Endometriosis Family/Other Menorrhagia Father Skin cancer Prostate cancer Grandfather Skin cancer Prostate cancer Bladder cancer Family/Other Prostate cancer Grandmother Breast cancer Lymphoma Grandmother Heart disease Diabetes mellitus Heart attack Hypertension Hyperlipidemia Grandfather Hyperlipidemia Hypertension Heart disease Stroke S/P CABG x 4 Skin cancer Social History marital status: number of children: 0 household members: spouse lives independently: Yes caregiver/support person: No housing: house pets and animals: No education level: college (bachelor's degree) occupational status: employed 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 travel history: recent ([place]) seatbelt use: always helmet use: Yes water heater temp set < 120 deg: Yes working smoke detector in home: Yes fire extinguisher in home: Yes carbon monox detector in home: Yes firearms in home: Yes firearms unloaded and locked: No (pt will make sure they are before the child is mobile) do you feel safe at home: Yes Smoking Status: Former smoker Tobacco: How many years used: 16 second hand exposure: No alcohol intake: former (very occasionally when not ) substance use type: does not use during the past year weight has: decreased > 10 lbs (Rx'd phentermine) well-balanced diet: daily or most days daily servings fruits/ve or more times/day caffeine: No Type(s) of exercise: walking, weight lifting and running frequency: daily additional social history: Pelvic rest due to heavy spotting, anxious to get back to a more normal exercise level as soon as it's safe. Meds Home Medications and Allergies Home Medications Medication Instructions Recorded Confirmed Type cholecalciferol (vitamin D3) 50 50 mcg PO DAILY 12/29/22 07/13/23 History mcg (2,000 unit) capsule fluticasone propionate 50 1 spray intranasal BID 12/29/22 07/13/23 History mcg/actuation nasal spray,suspension (Flonase Allergy Relief) krill oil 500 mg capsule mg PO 12/29/22 07/13/23 History mecobalamin (vitamin B12) 1,000 1,000 mcg PO DAILY 12/29/22 07/13/23 History mcg chewable tablet (B12 Active) vit no.95-ferrous 1 tab PO DAILY 12/29/22 07/13/23 History fumarate 28 mg-folic acid 800 mcg tablet ( Multivitamins) breast pump #1 ea 06/02/23 07/13/23 Rx labetalol 100 mg tablet 300 mg PO TID 07/25/23 History Allergies Allergy/AdvReac Type Severity Reaction Status Date / Time No Known Drug Allergies Allergy Unverified 07/13/23 15:17 Review of Systems Review of Systems Narrative: Patient denies headaches and scotomata. Good movement. She does complain of upper abdominal discomfort. She is overall not feeling as well as normal. No vaginal bleeding. No leakage of fluid. No cramping. OB Exam Vital signs Blood Pressure: 156/93 Pulse Rate: 96 Narrative Exam Narrative: HEENT exam within normal limits. Lungs are clear to auscultation percussion. Heart is regular rate and rhythm no S3-S4 murmurs. Abdomen is gravid. Fetus is vertex. Extremities with trace edema and nontender. Normal DTRs. Assessment and Plan Assessment and Plan Assessment and Plan narrative: 36 weeks 2 days with chronic hypertension with protein creatinine ratio of 3.3 admitted for induction for probable early preeclampsia. Patient's cervix is not favorable so will begin oral Cytotec 50 mg q.6 hours. Group B strep culture performed now. Consent form for induction was reviewed with the patient and signed.
[2023-07-25 20:19] VITALS: BP 156/93; PULSE 96
[2023-07-25] MEDS: miSOPROStoL 25 MCG TABLET 50 MCG PO (21:07)
[2023-07-25 21:13] VITALS: BP 156/96; PULSE 91
[2023-07-25] MEDS: LABETALOL 100 MG TABLET 300 MG PO (21:13)
[2023-07-25 21:27] LABS: Add Manual Diff / Slide Review NO; Basophils Absolute Auto 0 /uL (0-100); Basophils Percent Auto 0.1 % (0-2); Eosinophils Absolute Auto 100 /uL (0-450); Eosinophils Percent Auto 0.9 % (2-4); Hematocrit 34.1 % (36-46); Hemoglobin 11.6 g/dL (12.0-16.0); Lymphocytes Absolute Auto 1900 /uL (1100-4500); Lymphocytes Percent Auto 18.6 % (25-40); Mean Corpuscular HGB Conc 33.9 % (30-36); Mean Corpuscular Volume 79.7 fL (80-100); Monocytes Absolute Auto 1000 /uL (0-900); Monocytes Percent Auto 9.9 % (3-14); Neutrophils Absolute Auto 7300 /uL (1500-7000); Neutrophils Percent Auto 70.5 % (50-75); Platelet Count 289 X10^3/uL (150-400); Red Blood Cell Count 4.28 X10^6/uL (4.0-5.2); Red Cell Distribution Width 14.3 % (11.6-14.8); White Blood Cell Count 10.3 X10^3/uL (4.5-11.0)
[2023-07-25 21:37] LABS: Alanine Aminotransferase 23 IU/L (<35); Albumin Globulin Ratio 1.4 (1.0-2.8); Alkaline Phosphatase 94 U/L (38-126); Aspartate Aminotransferase 33 IU/L (14-36); BUN Creatinine Ratio 21.6 (6-22); Bilirubin Total 0.4 mg/dL (0.2-1.3); Blood Urea Nitrogen 11 mg/dL (7-17); Calcium 10.1 mg/dL (8.4-10.2); Carbon Dioxide 19 mmol/L (22-32); Chloride 108 mmol/L (98-107); Estimated Glomerular Filt Rate > 60 mL/min (>60); Globulin 2.9 g/dL (1.7-4.1); Glucose 95 mg/dL (70-100); HEMOLYSIS < 15 (0-50); Potassium 3.3 mmol/L (3.4-5.1); Sodium 137 mmol/L (137-145); Total Protein 6.9 g/dL (6.3-8.2)
[2023-07-25] MEDS: ZOLPIDEM 5 MG TABLET PO (22:06)
[2023-07-25 22:10] VITALS: BP 156/93
[2023-07-25 22:13] LABS: Creatinine Urine Random 87.1 mg/dL; Protein (Total) Urine Random 18 mg/dL (0-12)
[2023-07-25] MEDS: NIFEdipine 10 MG CAPSULE PO (22:22)
[2023-07-25 23:22] LABS: Strep Grp B PCR NEG for Grp B Strep
[2023-07-26] MEDS: miSOPROStoL 25 MCG TABLET 50 MCG PO ×2 (03:10→19:41)
--- NOTE | 2023-07-26 08:49 | PM.OBPNLAB ---
Date/Time Date Patient Seen: 07/26/23 Time Patient Seen: 08:49 Pain Control Pain control: other (No pain) Pelvic Exam Dilation (cm): 0 Effacement (%): 20 station: -1 Amniotic membrane status: Intact Contractions Contractions on admission: none Monitor mode: External Status status: Category l Heart Rate Baseline: 140 Monitor Accelerations: Present Monitor Decelerations: Absent Monitor Variability: Moderate Assessment and Plan Assessment: induction ongoing Plan: begin patient augmentation Comments: Patient denies headaches, scotomata, epigastric pain. Good movement. No leakage of fluid. No vaginal bleeding. Patient's initial blood pressure on admission was 162/95. 3 hours later it was 122/66 after her labetalol and nifedipine dose, patient's blood pressure 3 a.m. 136/75, current blood pressure 134/85 pulse of 93
[2023-07-26 09:01] VITALS: BP 136/82; PULSE 92
[2023-07-26] MEDS: NIFEdipine 10 MG CAPSULE PO ×3 (09:01→21:00)
[2023-07-26] MEDS: LABETALOL 100 MG TABLET 300 MG PO ×3 (09:01→21:00)
[2023-07-26] MEDS: LACTATED RINGERS 1,000 ML 100 ML IV (09:46)
[2023-07-26] MEDS: OXYTOCIN PREMIX 30 UNIT/500 ML PLAST..BAG IV (09:56)
--- NOTE | 2023-07-26 13:00 | PM.OBPNLAB ---
Date/Time Date Patient Seen: 07/26/23 Time Patient Seen: 13:00 Pain Control Pain control: tolerating well Pelvic Exam Effacement (%): 20 station: -1 Amniotic membrane status: Intact Contractions Contractions on admission: none Monitor mode: External Pitocin rate (mU/min): 10 Status status: Category l Heart Rate Baseline: 140 Monitor Accelerations: Present Monitor Decelerations: Absent Monitor Variability: Moderate Assessment and Plan Assessment: induction ongoing Plan: continuous present management (Pitocin) Comments: Patient's current blood pressure 142/89 pulse of 94, temperature 36?. Patient denies headaches, scotomata, epigastric pain. Reflexes are brisk but no clonus.
[2023-07-26 14:59] VITALS: BP 145/88; PULSE 90
--- NOTE | 2023-07-26 16:56 | PM.OBPNLAB ---
Date/Time Date Patient Seen: 07/26/23 Time Patient Seen: 16:56 Pain Control Pain control: tolerating well Pelvic Exam Effacement (%): 20 station: -1 Amniotic membrane status: Intact Contractions Monitor mode: External Pitocin rate (mU/min): 13 Contraction frequency (min): 3 Contraction duration (min): 1 Contraction pattern: Regular Contraction intensity: Mild Status status: Category l Heart Rate Baseline: 140 Monitor Accelerations: Present Monitor Decelerations: Absent Monitor Variability: Moderate Assessment and Plan Assessment: induction ongoing Comments: Patient with no significant discomfort with contractions on Pitocin. If no significant change in pain in the next hour and a half the Pitocin will be DC and repeat Cytotec x2 overnight. Recheck in a.m. will recheck PIH labs in the morning unless symptoms change overnight.
[2023-07-26 21:00] VITALS: BP 161/95; PULSE 80
[2023-07-26] MEDS: ZOLPIDEM 5 MG TABLET PO (22:00)
[2023-07-27] MEDS: miSOPROStoL 25 MCG TABLET 50 MCG PO ×3 (04:02→12:31)
[2023-07-27 07:06] LABS: Add Manual Diff / Slide Review NO; Basophils Absolute Auto 0 /uL (0-100); Basophils Percent Auto 0.4 % (0-2); Eosinophils Absolute Auto 100 /uL (0-450); Eosinophils Percent Auto 0.8 % (2-4); Hematocrit 35.7 % (36-46); Hemoglobin 11.9 g/dL (12.0-16.0); Lymphocytes Absolute Auto 1400 /uL (1100-4500); Lymphocytes Percent Auto 11.8 % (25-40); Mean Corpuscular HGB Conc 33.3 % (30-36); Mean Corpuscular Hemoglobin 26.2 PG (26-34); Mean Corpuscular Volume 78.8 fL (80-100); Monocytes Absolute Auto 1100 /uL (0-900); Monocytes Percent Auto 9.3 % (3-14); Neutrophils Absolute Auto 9200 /uL (1500-7000); Neutrophils Percent Auto 77.7 % (50-75); Platelet Count 284 X10^3/uL (150-400); Red Blood Cell Count 4.52 X10^6/uL (4.0-5.2); Red Cell Distribution Width 14.6 % (11.6-14.8); White Blood Cell Count 11.8 X10^3/uL (4.5-11.0)
[2023-07-27 07:26] LABS: Aspartate Aminotransferase 33 IU/L (14-36); Blood Urea Nitrogen 8 mg/dL (7-17); Estimated Glomerular Filt Rate > 60 mL/min (>60); Uric Acid 4.4 mg/dL (2.5-6.2)
--- NOTE | 2023-07-27 07:44 | PM.OBPNLAB ---
Date/Time Date Patient Seen: 07/27/23 Time Patient Seen: 07:44 Pain Control Pain control: tolerating well Pelvic Exam Dilation (cm): 0 Effacement (%): 20 station: -1 Amniotic membrane status: Intact Contractions Contractions on admission: irregular Monitor mode: External Pitocin rate (mU/min): 0 Contraction frequency (min): 0 Contraction pattern: Irregular Contraction intensity: Mild Status status: Category ll Heart Rate Baseline: 145 Monitor Accelerations: Present Monitor Decelerations: Absent Monitor Variability: Moderate Assessment and Plan Comments: Will increase the Cytotec to q.4 hours
[2023-07-27] MEDS: NIFEdipine 10 MG CAPSULE PO ×3 (08:07→20:49)
[2023-07-27 08:08] VITALS: BP 163/95; PULSE 86
[2023-07-27] MEDS: LABETALOL 100 MG TABLET 300 MG PO ×3 (08:08→20:49)
[2023-07-27] MEDS: miSOPROStoL 200 MCG TABLET 400 MCG SL (08:09)
[2023-07-27 08:40] LABS: Creatinine Urine Random 118.9 mg/dL; Protein (Total) Urine Random 17 mg/dL (0-12); Protein Creatinine Ratio Urine 0.14 GRAM/24H
--- NOTE | 2023-07-27 12:48 | PM.OBPNLAB ---
Date/Time Date Patient Seen: 07/27/23 Time Patient Seen: 12:49 Pain Control Pain control: other (No contractions no pain) Comments: Patient denies headaches. No epigastric pain. No pain or leakage of fluid. Baby is moving. Pelvic Exam station: -1 Amniotic membrane status: Intact Contractions Contractions on admission: none Monitor mode: External Contraction frequency (min): 0 Contraction pattern: Irregular Contraction intensity: Mild Status status: Category l Heart Rate Baseline: 130 Monitor Accelerations: Present Monitor Decelerations: Absent Monitor Variability: Moderate Assessment and Plan Assessment: induction ongoing Comments: Blood pressure is 118/68 and 138/84. Temperature 36?, pulse of 93. Repeat PIH labs were normal today including a normal protein creatinine ratio. Patient will be rechecked this afternoon and decision made about ongoing induction.
[2023-07-27 15:05] VITALS: BP 155/100; PULSE 86
--- NOTE | 2023-07-27 16:25 | PM.OBPNLAB ---
Date/Time Date Patient Seen: 07/27/23 Time Patient Seen: 16:25 Pain Control Pain control: tolerating well Pelvic Exam Dilation (cm): 1 Effacement (%): 0 station: -1 Amniotic membrane status: Intact Contractions Contractions on admission: none Monitor mode: External Contraction frequency (min): 0 Contraction pattern: Irregular Contraction intensity: Mild Status status: Category l Heart Rate Baseline: 140 Monitor Accelerations: Present Monitor Decelerations: Absent Monitor Variability: Moderate Assessment and Plan Plan: continuous present management (Continue Cytotec q.4 hours reassess in a.m.) Comments: Blood pressures since last no 155/101 19/64, pulse 100, temperature 35.8? No headaches, scotomata, epigastric pain.
[2023-07-27] MEDS: miSOPROStoL 25 MCG TABLET 50 MCG SL ×2 (17:05→21:21)
[2023-07-27 20:49] VITALS: BP 180/110; PULSE 88
[2023-07-27] MEDS: ZOLPIDEM 5 MG TABLET PO (22:24)
[2023-07-28] VITALS (10 sets, daily range): BP systolic 113–162; BP diastolic 75–99; PULSE 76–90; RESP 13–20; TEMP 36; O2SAT 96–97
--- NOTE | 2023-07-28 | PATH_ITS ---
[facility] Accession Number: [id number] No. of containers..01 Tissue . 01 Material submitted: . placenta - PLACENTA . 01 Diagnosis: PLACENTA: Johnson placenta with features of maturation consistent with third trimester gestational age. Weight: 387 grams (25th percentile for gestational age of 36-1/2 weeks). Unremarkable three vessel umbilical cord; no evidence of funisitis, arteritis, true knots, or thrombi. Unremarkable membranes; no evidence of chorioamnionitis or features of meconium staining. Focal infarct (less than 5% of the total cotyledon volume). Scattered nucleated red blood cells identified. See comment. No evidence of chronic villitis and features of abruption. No infectious organisms identified. MRV 08/08/2023 1639 Local . 01 Comment: Scattered nucleated red blood cells are identified in the vessels within the chorionic villi which maybe indicative of distress. . 01 Electronically signed: . Mansi Silverio MD, Pathologist NPI- [id number] . 01 Gross description: . Received fresh and subsequently placed in formalin per client, labeled with two identifiers and placenta, is a discoid johnson placenta (387 grams), 16.8 x 13.9 x 2.4 cm, with no accessory lobes identified. . The membranes are peña and translucent with no discoloration or thickening identified. They insert at the margin and have a point of rupture 6.1 cm from the nearest placental disc edge. . The cord measures 23.5 cm in length by 1.0 cm in average diameter with a leftward coil and an index of approximately 1 twist per 5 cm. The cord inserts marginally with unremarkable trivascular architecture and no knots of lesions identified. . The material surface has a separation of the amnion from the chorion adjacent to the cord across an area measuring 7.4 x 5.1 cm, approximately 20% of the surface. No additional lesion or discolorations are identified, and the vasculature is arborizing and unremarkable. . The maternal surface has a tear measuring 10.4 cm in length; however, the cotyledons are presumably intact. The surface is slightly peña with peña gritty areas consistent with calcification and an area of adherent hemorrhage mesuring 3.2 x 1.0 cm, approximately 10% of the maternal surface. The cut surface is red and spongy with no lesions identified. . Sections are submitted as follows: A1: Membrane roll and placental end of cord. A2: Membrane roll and end of cord. A3: Full thickness material surface hemorrhage. A4: Full thickness gritty maternal surface. A5-A7: Central full thickness unremarkable sections. ([id number]) /FRR 08/02/2023 2009 Local . 01 Microscopic: . Few villi with CD3 positive lymphocytes are identified, which is best interpretated as nonspecific. CD138 immunostain is negative for plasma cells within the chorionic villi. CD56 immunostain is negative for macrophages within the chorionic villi. Controls stain appropriately. . * This test was developed and its performance characteristics determined by [facility]. It has not been cleared or approved by the U.S. Food and Drug Administration. The FDA has determined that such clearance or approval is not necessary. This test is used for clinical purposes. It should not be regarded as investigational or for research. . 01 Pathologist provided ICD-10: O43.90, O69.1XX9 . 01 CPT . 114845, U68496, P16247 Specimen Comment: A courtesy copy of this report has been sent to [phone] Performed at: 01 [facility] [address] [place] [address], [place], [place] [id number] MD Jose De Jesus Rogers MD Phone: [phone]
[2023-07-28] MEDS: miSOPROStoL 25 MCG TABLET 50 MCG SL ×2 (01:21→05:25)
[2023-07-28 06:15] LABS: Add Manual Diff / Slide Review NO; Basophils Absolute Auto 100 /uL (0-100); Basophils Percent Auto 0.6 % (0-2); Eosinophils Absolute Auto 100 /uL (0-450); Eosinophils Percent Auto 0.8 % (2-4); Hemoglobin 12.5 g/dL (12.0-16.0); Lymphocytes Absolute Auto 1900 /uL (1100-4500); Lymphocytes Percent Auto 15.1 % (25-40); Mean Corpuscular Hemoglobin 26.2 PG (26-34); Mean Corpuscular Volume 79.5 fL (80-100); Monocytes Absolute Auto 1000 /uL (0-900); Monocytes Percent Auto 8.1 % (3-14); Neutrophils Absolute Auto 9700 /uL (1500-7000); Neutrophils Percent Auto 75.4 % (50-75); Platelet Count 289 X10^3/uL (150-400); Red Blood Cell Count 4.78 X10^6/uL (4.0-5.2); Red Cell Distribution Width 14.4 % (11.6-14.8); White Blood Cell Count 12.8 X10^3/uL (4.5-11.0)
[2023-07-28 06:27] LABS: Aspartate Aminotransferase 26 IU/L (14-36); Blood Urea Nitrogen 8 mg/dL (7-17); Estimated Glomerular Filt Rate > 60 mL/min (>60); Uric Acid 4.7 mg/dL (2.5-6.2)
[2023-07-28] MEDS: LABETALOL 100 MG TABLET 300 MG PO ×2 (07:34→16:05)
[2023-07-28] MEDS: NIFEdipine 10 MG CAPSULE PO ×2 (07:35→14:14)
--- NOTE | 2023-07-28 07:46 | P.PNOB_ITS ---
Date/Time Date Patient Seen: 07/28/23 Time Patient Seen: 07:47 Pain Control Pain control: tolerating well Pelvic Exam Dilation (cm): 3 Effacement (%): 70 station: -1 Amniotic membrane status: Intact Contractions Contractions on admission: irregular Monitor mode: External Contraction frequency (min): 0 Contraction pattern: Irregular Contraction intensity: Mild Status status: Category l Heart Rate Baseline: 130 Monitor Accelerations: Present Monitor Decelerations: Absent Monitor Variability: Moderate Assessment and Plan Assessment: induction ongoing (Begin Pitocin) Comments: Patient with labile blood pressures. Highest 180/110 but repeat within an hour was 120/71. Other blood pressure is 133/63 and 147/88 pulse 76 temperature 36. 0? Patient denies headaches, scotomata, epigastric pain.
[2023-07-28] MEDS: OXYTOCIN PREMIX 30 UNIT/500 ML PLAST..BAG IV (09:55)
[2023-07-28] MEDS: LACTATED RINGERS 1,000 ML 100 ML IV (09:55)
--- NOTE | 2023-07-28 12:22 | PM.OBPNLAB ---
Date/Time Date Patient Seen: 07/28/23 Time Patient Seen: 12:23 Pain Control Pain control: tolerating well Pelvic Exam Effacement (%): 70 station: -1 Amniotic membrane status: Intact Contractions Contractions on admission: regular Monitor mode: External Pitocin rate (mU/min): 9 Contraction frequency (min): 5 Contraction duration (min): 1 Contraction pattern: Regular Contraction intensity: Mild Status status: Category l Heart Rate Baseline: 130 Monitor Accelerations: Present Monitor Decelerations: Absent Monitor Variability: Moderate Assessment and Plan Assessment: induction ongoing Plan: continuous present management (Pitocin ) Comments: Blood pressure 141/93, temperature 35.7?, pulse 93. No preeclampsia symptoms
[2023-07-28] MEDS: LABETALOL 20 MG/4 ML SYRINGE IV (13:52)
--- NOTE | 2023-07-28 16:05 | PM.AN.REGBLK ---
[facility] <Dona Patel, DO - Last Filed: 07/28/23 16:48> Pre-procedure Procedure: Continuous Lumbar Epidural for L&D Attending OB provider: Misty Schmitz PMH/ROS narrative: 33 yo with pre-eclampsia at 36 wk 5 d GA being induced and now in labor requesting epidural. See pre-anesthesia note ASA Class: II Labs: Hct 38.0 % (36-46) 07/28/23 06:06 Plt Count 289 X10^3/uL (150-400) 07/28/23 06:06 Medications: Current Medications Generic Name Dose Route Start Last Admin Trade Name Freq PRN Reason Stop Dose Admin Calcium Carbonate 1,000 mg 07/25/23 19:37 Calcium Carbonate 500 Mg Tab PO Q4HR PRN Dyspepsia Carboprost Tromethamine 250 mcg 07/25/23 19:37 Carboprost 250 Mcg/Ml Ampul IM Q90M PRN Bleeding Fentanyl 100 mcg 07/25/23 19:37 Fentanyl 100 Mcg/2 Ml Inj IV Q1H PRN Pain, Severe (7-10) Tranexamic Acid 1,000 mg/ 100 mls @ 200 mls/hr 07/25/23 19:37 Sodium Chloride IV NOW PRN Bleeding Lactated Ringer's 1,000 mls @ 100 mls/hr 07/25/23 19:45 07/28/23 09:55 Lactated Ringers IV 100 mls/hr CONT ADRIANA Administration Oxytocin/Lactated Ringer's 30 unit in 500 mls @ 200 mls/hr 07/25/23 19:37 Oxytocin Premix IV CONT PRN Bleeding Protocol Oxytocin/Lactated Ringer's 30 unit in 500 mls @ 2 mls/hr 07/26/23 08:48 07/28/23 09:55 Oxytocin Premix IV 1 milliunit/min TITRATE ADRIANA 1 mls/hr Administration Protocol 2 MILLIUNIT/MIN Oxytocin/Lactated Ringer's 30 unit in 500 mls @ 2 mls/hr 07/28/23 07:46 Oxytocin Premix IV TITRATE ADRIANA Protocol 2 MILLIUNIT/MIN Labetalol HCl 300 mg 07/25/23 21:00 07/28/23 07:34 Labetalol 100 Mg Tablet PO 300 mg TID ADRIANA Administration Lidocaine HCl 20 ml 07/25/23 19:37 Lidocaine 1% 20 Ml INJ INTRA-OP PRN Post Delivery Methylergonovine Maleate 0.2 mg 07/25/23 19:37 Methylergonovine 0.2 Mg/Ml Vial IM NOW PRN Bleeding Methylergonovine Maleate 0.2 mg 07/25/23 19:37 Methylergonovine 0.2 Mg Tablet PO Q6HR PRN Heavy Bleeding Misoprostol 800 mcg 07/25/23 19:37 Misoprostol 200 Mcg Tablet NE NOW PRN Bleeding Misoprostol 50 mcg 07/27/23 17:00 07/28/23 05:25 Misoprostol 25 Mcg Tablet SL 50 mcg QID ADRIANA Administration Naloxone HCl 0.2 mg 07/25/23 19:37 Naloxone 0.4 Mg/Ml Vial IV Q2MIN PRN Opiate Reversal Nifedipine 10 mg 07/25/23 22:15 07/28/23 14:14 Nifedipine 10 Mg Capsule PO 10 mg TID ADRIANA Administration Ondansetron HCl 4 mg 07/25/23 19:37 Ondansetron 4 Mg/2 Ml Inj IV Q4HR PRN Nausea And Vomiting Oxytocin 10 unit 07/25/23 19:37 Oxytocin 10 Unit/Ml Vial IM NOW PRN Bleeding Zolpidem Tartrate 5 mg 07/25/23 20:00 07/27/23 22:24 Zolpidem 5 Mg Tablet PO 5 mg BEDTIME PRN Administration Sleep Allergies: Allergies Allergy/AdvReac Type Severity Reaction Status Date / Time No Known Drug Allergies Allergy Unverified 07/13/23 15:17 Procedure Insertion date: 07/28/23 Insertion time: 15:19 Prep/Local: 1% lidocaine (chloroprep) Interspace: L 3-4 Patient position: sitting Needle: 18 gauge [place] Loss of resistance with: saline SUKUMAR at (cm): 6 Catheter placed at SKIN (cm): 13 Catheter in SPACE (cm): 7 Insertion: Yes CSF, No Blood, Yes Paresthesia with insertion, No Paresthesia with injection and No Test dose reaction Initial Medications TEST DOSE time: 15:20 BOLUS DOSE time: 15:22 BOLUS DOSE (mL): 2 BOLUS DOSE med: other (same) Infusion INFUSION: 0.125% bupivacaine and with fentanyl 2 mcg/mL Initial rate (mL/hr): 8 Subsequent interventions: CSE due to pt discomfort. +CSF at 15:17. Instilled 0.5 ml of 0.75% bupivacaine in dextrose. Catheter placed and epidural dosing as above. Pt reports she does not like the N/T in her BLE but feels much more comfortable and is not noticing her contractions when infusion started at 15:36. 16:28 - Checked on pt. Denies pain. Unable to move BLE and requests epidural be turned down. I agreed and explained that we want her to be able to feel her contractions and be able to push effectively once she is complete. Epidural rate turned down from 8 to 4 ml/hr. KR Post-procedure Anesthesia date START: 07/28/23 Anesthesia time START: 15:15 <Rubina Martin MD - Last Filed: 07/28/23 22:43> Infusion Subsequent interventions: CSE due to pt discomfort. +CSF at 15:17. Instilled 0.5 ml of 0.75% bupivacaine in dextrose. Catheter placed and epidural dosing as above. Pt reports she does not like the N/T in her BLE but feels much more comfortable and is not noticing her contractions when infusion started at 15:36. 16:28 - Checked on pt. Denies pain. Unable to move BLE and requests epidural be turned down. I agreed and explained that we want her to be able to feel her contractions and be able to push effectively once she is complete. Epidural rate turned down from 8 to 4 ml/hr. KR 2003 I was called in because pt had retained placenta. Arrived at bedside 2009. Pt assessed. Hypertensive, in no acute distress. Total of 15 ml 2% lido w/epi given in divided doses (10 ml at 2014, then 5 ml at 2019, withdrawing every 3 ml) through epidural with eventual level of T8. Manual extraction attempted but pressure was very uncomfortable and placenta did not come out. OR crew called in. See nurse's record for vitals. NDB Post-procedure Anesthesia date END: 07/28/23 Anesthesia time END: 22:13 Post-procedure Anesthesia Assessment: Yes CV function: HR/BP stable, Yes Resp function: RR/sat/airway adequate, Yes Post-op hydration adequate, Yes Pain control adequate, Yes Nausea & vomiting absent, Yes Temperature > 36 C, Yes Mental status appropriate and No Anesthesia complications
--- NOTE | 2023-07-28 17:18 | PM.OBPNLAB ---
Date/Time Date Patient Seen: 07/28/23 Time Patient Seen: 17:19 Pain Control Pain control: epidural Pelvic Exam Dilation (cm): 5 Effacement (%): 90 station: -1 Amniotic membrane status: Ruptured (Clear) Contractions Contractions on admission: regular Monitor mode: External Pitocin rate (mU/min): 9 Contraction frequency (min): 4 Contraction duration (min): 1 Contraction pattern: Regular Contraction intensity: Strong/Firm Status status: Category ll Heart Rate Baseline: 125 Monitor Accelerations: Present Monitor Decelerations: Absent Monitor Variability: Moderate Assessment and Plan Assessment: induction ongoing Plan: continuous present management Comments: Patient required 2 doses of IV labetalol for a sudden prolonged spike in blood pressure. Will give an additional p.o. labetalol dose now. Most likely this is the patient's anxiety causing the blood pressure spikes.
[2023-07-28] MEDS: LABETALOL 100 MG TABLET PO (17:38)
--- NOTE | 2023-07-28 20:46 | PM.OBPRVD ---
Events: Pre-Eclampsia Labor & Delivery Delivery date: 07/28/23 Intrapartal Events: Mild Preeclampsia (Normal labs, labile blood pressure) Cervical ripening method: per misoprostal protocol Delivery augmentation: pitocin Delivery monitor: external FHT and external uterine Route of delivery: L&D Laceration Description: Vaginal - 2nd Degree (Further evaluation for lacerations will be performed in the operating room) Estimated blood loss (mL): 2,000 Anesthesia Type: Epidural Complications: Retained placenta Narrative: Patient was admitted for induction at 36-,1/2 weeks for preeclampsia. Patient had extremely labile blood pressures and her blood pressure for increasing. She had headaches and a protein creatinine ratio of 3.3 and was admitted for Cytotec induction. Repeat labs returned to normal. Patient had no further headaches. Patient received Cytotec, Pitocin, Cytotec and finally was found to have a favorable cervix and Pitocin begun. Patient received an epidural catheter for pain control. heart tones category 1 to category 2 throughout labor. She had spontaneous rupture membranes for clear fluid. The patient delivered spontaneously, over an intact perineum. There was a tight nuchal cord that was released with delivery of the . The was placed on maternal abdomen. After the cord stopped pulsating the cord was clamped, cut, and cord bloods obtained. The placenta did not deliver spontaneously. Patient's epidural was wearing off and so the epidural was re injected. Attempt at manual removal in the labor room was unsuccessful. Patient will be taken to the OR for attempt at manual if not then curettage. Consent form for manual removal of the placenta with or without curettage was reviewed with the patient. Risk of reaction to medication or anesthesia, infection, bleeding that could require blood transfusion, possible damage to the uterus. Consent form signed and questions answered. [place] Baby 1: Infant gender: Female Presentation: vertex Position: Right Occiput Anterior Placenta delivery description: Manual Removal and Uterine Exploration Cord Vessel Description: Tight score (1 min): 8 score (5 min): 9 Plan for aftercare: Routine care (With monitoring for hemorrhage and infection)
--- NOTE | 2023-07-28 20:54 | PM.PREOP ---
Pre-operative Note Interval Note History & Physical reviewed/Exam performed by Physician: Yes Changes to H&P: Yes H&P completed within 30 days and has changed as indicated here:: Retained placenta after spontaneous vaginal delivery
[2023-07-28] MEDS: LIDOCAINE 1% 20 ML INJ (21:06)
[2023-07-28] MEDS: CITRIC ACID/SODIUM CITRATE 15 ML SOLUTION 30 ML PO (21:06)
--- NOTE | 2023-07-28 21:46 | SUR.OPER ---
Lithotomy on padded OR bed, head on pillow, arms secured on padded arm boards at <90 degrees abduction. Legs secured in padded yellow fins stirrups.
--- NOTE | 2023-07-28 22:58 | P.OP_ITS ---
Operative Date/Time/Diagnoses Date of procedure: 07/28/23 Time of procedure: 22:58 Pre-op diagnosis: Retained placenta Post-op diagnosis: same Procedure & Clinicians Procedure: Manual removal of placenta and repair of second-degree bilateral vaginal tears Same procedure as scheduled: Yes Indications: Retained placenta Surgeon: Misty Schmitz Click Yes if Unassisted: Yes Anesthesia Type: Epidural Operative Notes Findings: Retained placenta requiring manual removal. Bilateral second-degree vaginal tears. Closure Type: primary Specimen(s): other (Placenta) Applied: catheter ([place]) Estimated Blood Loss (mL): 2,000 (Total including at delivery) Blood products transfused: none Procedure in detail: Patient was brought to the operating room where she had her epidural dosed for pain control. She was placed in low Y[place]in stirrups and prepped and draped in usual sterile fashion. A check system was reviewed with the staff in the room prior to beginning the case. 2 g of Ancef were in, warming was with blankets, pulsatile stockings in place and functional. The operator assistant i cementing's hand was placed into the vagina and into the uterus with manual removal of the retained placenta. After removal of the placenta the uterine cavity was examined with the operator assistant i cementing fingers and there did not appear to be any retained products. There did not appear to be any cervical tears. There were bilateral second- degree vaginal tears that were repaired with 2-0 and 3-0 chromic suture. Minor tear of the left labia that was repaired with 3 0 chromic suture. There appeared to be good hemostasis after the procedure. The patient received Pitocin and TXA during the case. Complications: none Post-operative Condition: stable Disposition: other ( Center) Plan for aftercare: Stat H&H. Monitor for hemorrhage or infection.
[2023-07-28 23:24] LABS: Add Manual Diff / Slide Review NO; Basophils Absolute Auto 0 /uL (0-100); Basophils Percent Auto 0.1 % (0-2); Eosinophils Absolute Auto 0 /uL (0-450); Eosinophils Percent Auto 0.1 % (2-4); Hematocrit 30.1 % (36-46); Hemoglobin 10.1 g/dL (12.0-16.0); Lymphocytes Absolute Auto 1200 /uL (1100-4500); Lymphocytes Percent Auto 6.4 % (25-40); Mean Corpuscular HGB Conc 33.4 % (30-36); Mean Corpuscular Hemoglobin 26.5 PG (26-34); Mean Corpuscular Volume 79.2 fL (80-100); Monocytes Absolute Auto 1400 /uL (0-900); Monocytes Percent Auto 7.7 % (3-14); Neutrophils Absolute Auto 16100 /uL (1500-7000); Neutrophils Percent Auto 85.7 % (50-75); Platelet Count 245 X10^3/uL (150-400); Red Cell Distribution Width 14.6 % (11.6-14.8); White Blood Cell Count 18.7 X10^3/uL (4.5-11.0)
[2023-07-29 00:42] VITALS: BP 137/82; PULSE 95
[2023-07-29] MEDS: IBUPROFEN 600 MG TABLET PO ×4 (00:42→18:30)
[2023-07-29] MEDS: LABETALOL 100 MG TABLET 300 MG PO (00:42)
[2023-07-29] MEDS: ACETAMINOPHEN 325 MG TABLET 650 MG PO ×4 (00:42→18:30)
[2023-07-29 06:29] LABS: Add Manual Diff / Slide Review NO; Basophils Absolute Auto 100 /uL (0-100); Basophils Percent Auto 0.4 % (0-2); Eosinophils Absolute Auto 0 /uL (0-450); Eosinophils Percent Auto 0.1 % (2-4); Hematocrit 27.7 % (36-46); Hemoglobin 9.2 g/dL (12.0-16.0); Lymphocytes Absolute Auto 2300 /uL (1100-4500); Lymphocytes Percent Auto 14.7 % (25-40); Mean Corpuscular HGB Conc 33.2 % (30-36); Mean Corpuscular Hemoglobin 26.4 PG (26-34); Mean Corpuscular Volume 79.5 fL (80-100); Monocytes Absolute Auto 1300 /uL (0-900); Monocytes Percent Auto 8.4 % (3-14); Neutrophils Absolute Auto 12100 /uL (1500-7000); Neutrophils Percent Auto 76.4 % (50-75); Platelet Count 237 X10^3/uL (150-400); Red Blood Cell Count 3.48 X10^6/uL (4.0-5.2); Red Cell Distribution Width 14.6 % (11.6-14.8); White Blood Cell Count 15.9 X10^3/uL (4.5-11.0)
[2023-07-29 06:41] LABS: Alanine Aminotransferase 19 IU/L (<35); Albumin 2.9 g/dL (3.5-5.0); Alkaline Phosphatase 88 U/L (38-126); Aspartate Aminotransferase 41 IU/L (14-36); BUN Creatinine Ratio 16.4 (6-22); Bilirubin Total 0.4 mg/dL (0.2-1.3); Blood Urea Nitrogen 11 mg/dL (7-17); Calcium 8.6 mg/dL (8.4-10.2); Carbon Dioxide 23 mmol/L (22-32); Chloride 108 mmol/L (98-107); Estimated Glomerular Filt Rate > 60 mL/min (>60); Globulin 2.8 g/dL (1.7-4.1); Glucose 75 mg/dL (70-100); HEMOLYSIS < 15 (0-50); Potassium 3.9 mmol/L (3.4-5.1); Sodium 133 mmol/L (137-145); Total Protein 5.7 g/dL (6.3-8.2)
--- NOTE | 2023-07-29 08:29 | P.PNOB_ITS ---
Subjective - OB Subjective Patient comments: no complaints (Patient on initial attempt at standing last night was lightheaded and dizzy but able to stand today) [place] baby status: doing well and nursing well [place] feeding status: exclusively breast feeding Date Patient Seen: 07/29/23 Time Patient Seen: 08:30 Interval history: Patient feels she is doing well after vaginal delivery with retained placenta requiring moving to the operating room for manual removal of the placenta and repair of vaginal tears. Patient had significant blood loss. She denies pain. She is able to stand at this point. Exam Vital Signs (past 8 hours): - Blood pressure 135/87 with a range of 116/71 to 137/82, pulse of 76, temperature 98? 07/29/23 00:42 Pulse Rate 95 H Blood Pressure 137/82 Oxygen Delivery Method Room Air Narrative Exam Narrative: Abdomen is soft, nontender. Uterus is firm, U-1, nontender. Mild lochia. Repair intact. Extremities without edema and nontender. Objective Labs 07/29/23 06:20 07/29/23 06:20 Labs: Laboratory Results - last 24 hr 07/28/23 07/29/23 23:15 06:20 WBC 18.7 H 15.9 H RBC 3.80 L 3.48 L Hgb 10.1 L 9.2 L Hct 30.1 L 27.7 L MCV 79.2 L 79.5 L MCH 26.5 26.4 MCHC 33.4 33.2 RDW 14.6 14.6 Plt Count 245 237 Neut % (Auto) 85.7 H 76.4 H Lymph % (Auto) 6.4 L 14.7 L [place] % (Auto) 7.7 8.4 Eos % (Auto) 0.1 L 0.1 L Baso % (Auto) 0.1 0.4 Neut # (Auto) 33188 H 48124 H Lymph # (Auto) 1200 2300 [place] # (Auto) 1400 H 1300 H Eos # (Auto) 0 0 Baso # (Auto) 0 100 Sodium 133 L Potassium 3.9 Chloride 108 H Carbon Dioxide 23 BUN 11 Creatinine 0.67 Estimated GFR > 60 BUN/Creatinine Ratio 16.4 Glucose 75 Calcium 8.6 Total Bilirubin 0.4 AST 41 H ALT 19 Alkaline Phosphatase 88 Total Protein 5.7 L Albumin 2.9 L Globulin 2.8 Albumin/Globulin Ratio 1.0 Assessment & Plan Plan day: 0 plan OB: routine care Comments: Monitor closely for symptoms from anemia. Time Spent With Patient Time: Total time spent is greater than 50% in coordination of care (as documented) at patient's floor/unit and/or counseling patient: Time with patient: less than 15 minutes
[2023-07-29] MEDS: FERROUS SULFATE 325 MG TABLET PO (09:48)
[2023-07-29] MEDS: PRENATAL VIT,CALC/IRON/FOLIC 1 TABLET 1 TAB PO (09:48)
[2023-07-29] MEDS: IRON SUCROSE 100 MG in SODIUM CHLORIDE 0.9% 100 ML 420 MG IV (09:48)
[2023-07-29] MEDS: DOCUSATE 100 MG CAPSULE PO (09:48)
[2023-07-29] MEDS: DERMOPLAST SPRAY 20% 60 ML 1 SPRAY TOP (09:48)
[2023-07-29 15:19] VITALS: BP 135/81; PULSE 89
[2023-07-29] MEDS: LABETALOL 100 MG TABLET PO ×2 (15:19→20:57)
--- NOTE | 2023-07-29 19:14 | P.PNOB_ITS ---
Subjective - OB Subjective Patient comments: pain well controlled and other (Some dizziness with being up for a while) baby status: doing well and nursing well [place] feeding status: breast and bottle feeding Narrative: Patient denies headaches, scotomata, epigastric pain. Date Patient Seen: 07/29/23 Time Patient Seen: 19:15 Interval history: day 1 vaginal delivery with retained placenta and repair second- degree vaginal tears Exam Vital Signs (past 8 hours): - Blood pressure is 120/84 and 135/81, pulse of 89, temperature 97.6? 07/29/23 15:19 Pulse Rate 89 Blood Pressure 135/81 Oxygen Delivery Method Room Air Narrative Exam Narrative: HEENT exam within normal limits. Abdomen is soft, nontender. Uterus is firm, U-1, nontender. Extremities with trace edema and nontender. Objective Labs 07/29/23 06:20 07/29/23 06:20 Labs: Laboratory Results - last 24 hr 07/28/23 07/29/23 23:15 06:20 WBC 18.7 H 15.9 H RBC 3.80 L 3.48 L Hgb 10.1 L 9.2 L Hct 30.1 L 27.7 L MCV 79.2 L 79.5 L MCH 26.5 26.4 MCHC 33.4 33.2 RDW 14.6 14.6 Plt Count 245 237 Neut % (Auto) 85.7 H 76.4 H Lymph % (Auto) 6.4 L 14.7 L [place] % (Auto) 7.7 8.4 Eos % (Auto) 0.1 L 0.1 L Baso % (Auto) 0.1 0.4 Neut # (Auto) 57035 H 20562 H Lymph # (Auto) 1200 2300 [place] # (Auto) 1400 H 1300 H Eos # (Auto) 0 0 Baso # (Auto) 0 100 Sodium 133 L Potassium 3.9 Chloride 108 H Carbon Dioxide 23 BUN 11 Creatinine 0.67 Estimated GFR > 60 BUN/Creatinine Ratio 16.4 Glucose 75 Calcium 8.6 Total Bilirubin 0.4 AST 41 H ALT 19 Alkaline Phosphatase 88 Total Protein 5.7 L Albumin 2.9 L Globulin 2.8 Albumin/Globulin Ratio 1.0 Assessment & Plan Plan day: 1 plan OB: routine care (Continuing to monitor for signs of preeclampsia, complications from retained placenta) Comments: AST elevated today. Will repeat PIH labs in the morning and additional IV iron dose. We have lowered her labetalol from 300 t.i.d. to 100 mg t.i.d. and will monitor blood pressures. Time Spent With Patient Time: Total time spent is greater than 50% in coordination of care (as documented) at patient's floor/unit and/or counseling patient: Time with patient: less than 15 minutes
[2023-07-30] MEDS: ACETAMINOPHEN 325 MG TABLET 650 MG PO ×2 (00:38→06:22)
[2023-07-30] MEDS: IBUPROFEN 600 MG TABLET PO ×2 (00:38→06:22)
[2023-07-30 05:31] LABS: Add Manual Diff / Slide Review NO; Basophils Absolute Auto 100 /uL (0-100); Basophils Percent Auto 0.5 % (0-2); Eosinophils Absolute Auto 200 /uL (0-450); Eosinophils Percent Auto 1.6 % (2-4); Hematocrit 23.3 % (36-46); Hemoglobin 7.8 g/dL (12.0-16.0); Lymphocytes Absolute Auto 2900 /uL (1100-4500); Lymphocytes Percent Auto 25.3 % (25-40); Mean Corpuscular HGB Conc 33.4 % (30-36); Mean Corpuscular Hemoglobin 26.5 PG (26-34); Mean Corpuscular Volume 79.3 fL (80-100); Monocytes Absolute Auto 800 /uL (0-900); Monocytes Percent Auto 6.7 % (3-14); Neutrophils Absolute Auto 7600 /uL (1500-7000); Neutrophils Percent Auto 65.9 % (50-75); Platelet Count 228 X10^3/uL (150-400); Red Blood Cell Count 2.94 X10^6/uL (4.0-5.2); Red Cell Distribution Width 14.7 % (11.6-14.8); White Blood Cell Count 11.5 X10^3/uL (4.5-11.0)
[2023-07-30 05:54] LABS: Alanine Aminotransferase 21 IU/L (<35); Albumin 2.8 g/dL (3.5-5.0); Albumin Globulin Ratio 1.1 (1.0-2.8); Alkaline Phosphatase 77 U/L (38-126); Aspartate Aminotransferase 40 IU/L (14-36); BUN Creatinine Ratio 23.7 (6-22); Bilirubin Total 0.2 mg/dL (0.2-1.3); Blood Urea Nitrogen 14 mg/dL (7-17); Calcium 8.7 mg/dL (8.4-10.2); Carbon Dioxide 20 mmol/L (22-32); Chloride 110 mmol/L (98-107); Estimated Glomerular Filt Rate > 60 mL/min (>60); Globulin 2.6 g/dL (1.7-4.1); Glucose 82 mg/dL (70-100); HEMOLYSIS < 15 (0-50); Potassium 3.6 mmol/L (3.4-5.1); Sodium 134 mmol/L (137-145); Total Protein 5.4 g/dL (6.3-8.2)
[2023-07-30] MEDS: LABETALOL 100 MG TABLET PO (06:47)
[2023-07-30] MEDS: PRENATAL VIT,CALC/IRON/FOLIC 1 TABLET 1 TAB PO (06:47)
[2023-07-30] MEDS: DOCUSATE 100 MG CAPSULE PO (06:48)
[2023-07-30] MEDS: FERROUS SULFATE 325 MG TABLET PO (06:48)
[2023-07-30] MEDS: IRON SUCROSE 100 MG in SODIUM CHLORIDE 0.9% 100 ML 420 MG IV (07:07)
--- NOTE | 2023-07-30 09:35 | PM.OBDS.1 ---
Discharge Providers Provider Date of admission: 07/25/23 19:21 Discharge Date: 07/30/23 Primary care physician: Monty SALEEM Provider Consults: 07/25/23 19:37 Consult to Anesthesiology Urgent Comment: Consulting Provider: Anesthesiologist Reason for consultation: Epidural Has provider been notified: No 07/29/23 22:34 Consult to Industrial Custodian Routine Comment: Discharge provider: Misty Schmitz MD Summary Hospital Course Date Patient Seen: 07/30/23 Time Patient Seen: 09:35 Diagnoses: Preeclampsia at 36 weeks Hospital Course: Patient was admitted for induction at 36 and half weeks due to preeclampsia superimposed on hypertension. The patient had induction was Cytotec and Pitocin. She received an epidural catheter for pain control. She had a spontaneous vaginal delivery a viable female . The patient had a retained placenta that required manual removal in the operating room. She had repair of bilateral second-degree vaginal tears. She had a 2000 cc blood loss. She received 2 doses of IV iron therapy. Patient is ambulatory and urinating well. She is passing gas. Lochia is mild. Patient denies headaches, scotomata, epigastric pain. Peripartum Data Delivery Method: Natural Vaginal Laceration Description: Vaginal - 2nd Degree Procedures: Prostin and Pitocin induction, epidural catheter, spontaneous vaginal delivery, manual removal of placenta and repair of second-degree vaginal tears complications: none [place] 1: Gender: Female Disposition of : home Discharge Diagnosis (1) Vaginal delivery: Status: Acute (2) Retained placenta with hemorrhage, condition: Status: Acute (3) 36 weeks gestation of : Status: Acute (4) Pre-eclampsia added to pre-existing hypertension: Status: Acute Status at Discharge Cognitive/behavioral status at discharge: oriented Functional status at discharge: independent ambulation Overall status at discharge: patient is progressing back to baseline Time Spent with Patient Time attestation: Total time spent providing and/or coordinating discharge services: Time spent: Less than 30 minutes Objective Labs 07/30/23 Unknown 07/30/23 05:24 Labs: Laboratory Results - last 24 hr 07/30/23 07/30/23 05:24 Unknown WBC 11.5 H RBC 2.94 L Hgb 7.8 L Hct 23.3 L MCV 79.3 L MCH 26.5 MCHC 33.4 RDW 14.7 Plt Count 228 Neut % (Auto) 65.9 Lymph % (Auto) 25.3 [place] % (Auto) 6.7 Eos % (Auto) 1.6 L Baso % (Auto) 0.5 Neut # (Auto) 7600 H Lymph # (Auto) 2900 [place] # (Auto) 800 Eos # (Auto) 200 Baso # (Auto) 100 Sodium 134 L Potassium 3.6 Chloride 110 H Carbon Dioxide 20 L BUN 14 Creatinine 0.59 Estimated GFR > 60 BUN/Creatinine Ratio 23.7 H Glucose 82 Calcium 8.7 Total Bilirubin 0.2 AST 40 H ALT 21 Alkaline Phosphatase 77 Total Protein 5.4 L Albumin 2.8 L Globulin 2.6 Albumin/Globulin Ratio 1.1 Exam Vital Signs (past 8 hours): Blood pressure 138/84, pulse 65, temperature 98.5? Oxygen Delivery Method Room Air Narrative Exam Narrative: Abdomen is soft, nontender. Uterus is firm, U-1, nontender. Repair is intact. Mild lochia. Extremities without edema and nontender. Discharge Plan Discharge Plan Patient Disposition: Home Provider Discharge Comment: Patient is aware she will be taking 100 mg labetalol t.i.d. not 300 mg unless her blood pressure increases Discharge orders & Medications Prescriptions: New acetaminophen 325 mg Tablet 650 mg PO Q6HR PRN (Reason: Pain, Mild (1-3)) Qty: 30 0RF ibuprofen 600 mg Tablet 600 mg PO Q6HR PRN (Reason: Pain, Mild (1-3)) Qty: 30 0RF Continued (DME) breast pump Device See Rx Instructions .Route Qty: 1 0RF Rx Instructions: Lactating Mother PNV cmb#[id number]-ferrous fumarate-FA [ Multivitamins] 28 mg iron- 800 mcg tablet 1 tab PO DAILY fluticasone propionate [Flonase Allergy Relief] 50 mcg/actuation spray,suspension 1 spray intranasal BID Rx Instructions: administer into each nostril krill oil 500 mg capsule PO cholecalciferol (vitamin D3) 50 mcg (2,000 unit) capsule 50 mcg PO DAILY mecobalamin (vitamin B12) [B12 Active] 1,000 mcg tablet,chewable 1,000 mcg PO DAILY Discontinued labetalol 100 mg tablet 300 mg PO TID Follow up/Referrals: Marcia Cardoza MD [Physician] - 09/08/23 2:00 pm ([address] appointment [address] Cardoza. ) Provider,Monty SALEEM [Primary Care Provider] - Activity Restrictions/Additional Instructions: Nothing in vagina for 6 weeks Diet/Activity/Treatments Diet: Regular Skin/Wound/Dressing Care Report to your healthcare provider any signs of infection, such as:: chills, fever and increased pain Visit Report/Discharge Packet Stand Alone Forms: Discharge: Care, Patient Portal/API, Stroke Signs & Symptoms Discharge Data Primary Care Provider: ProviderMonty
== END 2023-07-30 10:42 | disposition home or self-care (01) | DRG 806 ==
PROVIDERS: Admitting Provider Specialist; Referring Provider Specialist; Visit Provider Specialist
PROC: 10E0XZZ Delivery of Products of Conception, External Approach (ICD-10-PCS; CPT 58120; principal; 2023-07-28 21:30)
DX: O11.4 Pre-existing hypertension with pre-eclampsia, complicating childbirth (principal); D62 Acute posthemorrhagic anemia; Z37.0 Single live birth; O90.81 Anemia of the puerperium; O72.2 Delayed and secondary postpartum hemorrhage; O76 Abnormality in fetal heart rate and rhythm complicating labor and delivery; O70.1 Second degree perineal laceration during delivery; Z3A.36 36 weeks gestation of pregnancy
CPT/HCPCS: 36415; 59050; 59160; 59200; 59400; 59409; 80053; 82570; 84156; 84450; 84550; 85025; 86850; 86900; 86901; 87081; 87653; G0379; J1756; J2405; J2590; S0191

== ENCOUNTER 2023-08-02 17:49 | Observation (INO) | payer OTHER, SELFPAY ==
[2023-08-02] VITALS (7 sets, daily range): BP systolic 131–177; BP diastolic 83–112; PULSE 90–106; RESP 16–18; TEMP 36.7–37.1; O2SAT 97–98; BMI 32.9
--- NOTE | 2023-08-02 18:02 | P.TNLD_ITS ---
Visit Information Visit Information Date of evaluation: 08/02/23 Primary OB Provider: Misty Schmitz On-call OB Provider: Davide Mackay Reason for Evaluation: Yes other Comments/Additional reasons for admission: Belen ontiveros PP following delivery [facility] Medical History (Updated 08/02/23 @ 19:39 by Davide Mackay MD) Migraine without aura Depression White coat syndrome with hypertension Surgical History (Updated 12/29/22 @ 11:10 by Emerita Ruiz, RN) H/O rhinoplasty [place] teeth extracted History of removal of skin mole Family History (Updated 12/29/22 @ 11:20 by Emerita Ruiz, RN) Mother Menorrhagia History of hysterectomy Hypertension Hyperlipidemia Sister Menorrhagia PCOS (polycystic ovarian syndrome) Sister Menorrhagia Endometriosis Family/Other Menorrhagia Father Skin cancer Prostate cancer Grandfather Skin cancer Prostate cancer Bladder cancer Family/Other Prostate cancer Grandmother Breast cancer Lymphoma Grandmother Heart disease Diabetes mellitus Heart attack Hypertension Hyperlipidemia Grandfather Hyperlipidemia Hypertension Heart disease Stroke S/P CABG x 4 Skin cancer Social History marital status: number of children: 0 household members: spouse lives independently: Yes caregiver/support person: No housing: house pets and animals: No education level: college (bachelor's degree) occupational status: employed 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 travel history: recent ([place]) seatbelt use: always helmet use: Yes water heater temp set < 120 deg: Yes working smoke detector in home: Yes fire extinguisher in home: Yes carbon monox detector in home: Yes firearms in home: Yes firearms unloaded and locked: No (pt will make sure they are before the child is mobile) do you feel safe at home: Yes Smoking Status: Never smoker Tobacco: How many years used: 16 second hand exposure: No alcohol intake: former (very occasionally when not ) substance use type: does not use during the past year weight has: decreased > 10 lbs (Rx'd phentermine) well-balanced diet: daily or most days daily servings fruits/ve or more times/day caffeine: No Type(s) of exercise: walking, weight lifting and running frequency: daily additional social history: Pelvic rest due to heavy spotting, anxious to get back to a more normal exercise level as soon as it's safe. Objective Labs 08/02/23 18:25 08/02/23 18:25 Diagnosis, Plan/Disposition Final Diagnosis (1) Preeclampsia in period: Status: Acute Plan/Disposition Plan: Based on blood pressures in the severe range, markedly elevated protein to creatinine ratio, elevated liver function studies including both ALT and AST, and significant hyperreflexia, patient clearly meets criteria for preeclampsia with severe features. Will admit for intravenous magnesium sulfate therapy times 24 hours and control of her blood pressure with oral labetalol and if needed oral nifedipine. OB Disposition: admit to hospital
[2023-08-02] MEDS: LABETALOL 100 MG TABLET 200 MG PO (18:07)
--- NOTE | 2023-08-02 18:37 | PC.NURSE ---
Pt here with her who was readmitted for jaundice. Pt asked RN to check her BP. 177/112. Had pt call the financial management consultant OB. Orders received from Dr. Mackay 1750. No success placing an IV on the first attempt. Pt is severely anxious. RN called to ER for IV placement. 200mg PO labetalol given at 1807. 1835: lab draw/urine collected and sent to lab.
[2023-08-02] MEDS: NIFEdipine 10 MG CAPSULE PO (18:52)
[2023-08-02 18:57] LABS: Add Manual Diff / Slide Review NO; Basophils Absolute Auto 100 /uL (0-100); Basophils Percent Auto 0.6 % (0-2); Eosinophils Absolute Auto 300 /uL (0-450); Eosinophils Percent Auto 2.6 % (2-4); Hemoglobin 9.3 g/dL (12.0-16.0); Lymphocytes Absolute Auto 3300 /uL (1100-4500); Lymphocytes Percent Auto 26.6 % (25-40); Mean Corpuscular HGB Conc 33.4 % (30-36); Mean Corpuscular Hemoglobin 26.9 PG (26-34); Mean Corpuscular Volume 80.6 fL (80-100); Monocytes Absolute Auto 800 /uL (0-900); Monocytes Percent Auto 6.7 % (3-14); Neutrophils Absolute Auto 7900 /uL (1500-7000); Neutrophils Percent Auto 63.5 % (50-75); Platelet Count 479 X10^3/uL (150-400); Red Blood Cell Count 3.47 X10^6/uL (4.0-5.2); Red Cell Distribution Width 14.3 % (11.6-14.8); White Blood Cell Count 12.5 X10^3/uL (4.5-11.0)
[2023-08-02 19:01] LABS: Alanine Aminotransferase 44 IU/L (<35); Albumin 4.1 g/dL (3.5-5.0); Albumin Globulin Ratio 1.4 (1.0-2.8); Alkaline Phosphatase 83 U/L (38-126); Aspartate Aminotransferase 40 IU/L (14-36); Bilirubin Total 0.4 mg/dL (0.2-1.3); Blood Urea Nitrogen 12 mg/dL (7-17); Calcium 9.9 mg/dL (8.4-10.2); Carbon Dioxide 26 mmol/L (22-32); Chloride 108 mmol/L (98-107); Estimated Glomerular Filt Rate > 60 mL/min (>60); Globulin 2.9 g/dL (1.7-4.1); Glucose 86 mg/dL (70-100); HEMOLYSIS < 15 (0-50); Sodium 139 mmol/L (137-145)
[2023-08-02 19:12] LABS: Creatinine Urine Random 13.2 mg/dL; Protein (Total) Urine Random 27 mg/dL (0-12); Protein Creatinine Ratio Urine 2.04 GRAM/24H
--- NOTE | 2023-08-02 19:12 | PC.NURSE ---
1850: Pt wants to avoid getting an IV placed and is requesting PO Nifedipine. Orders received from Dr. Mackay for NIfedipine.
--- NOTE | 2023-08-02 19:42 | PC.NURSE ---
1939 - Dr. Mackay called, will be admitting patient for pre-e. Putting orders in. Patient extremely anxious to be here, will discuss plan of care with patient.
--- NOTE | 2023-08-02 19:50 | P.HPOB_ITS ---
OB HPI Date/Time Date of admission: 08/02/23 Date Patient Seen: 08/03/23 Time Patient Seen: 07:15 History of Present Condition Chief complaint: Preclampsia : 2 Para: 1 Narrative: Belen Govea is a 33 year old s/p well well PFSH Medical History (Updated 08/02/23 @ 19:39 by Davide Mackay MD) Migraine without aura Depression White coat syndrome with hypertension Surgical History (Updated 12/29/22 @ 11:10 by Emerita Ruiz, JANET) H/O rhinoplasty [place] teeth extracted History of removal of skin mole Family History (Updated 12/29/22 @ 11:20 by Emerita Ruiz RN) Mother Menorrhagia History of hysterectomy Hypertension Hyperlipidemia Sister Menorrhagia PCOS (polycystic ovarian syndrome) Sister Menorrhagia Endometriosis Family/Other Menorrhagia Father Skin cancer Prostate cancer Grandfather Skin cancer Prostate cancer Bladder cancer Family/Other Prostate cancer Grandmother Breast cancer Lymphoma Grandmother Heart disease Diabetes mellitus Heart attack Hypertension Hyperlipidemia Grandfather Hyperlipidemia Hypertension Heart disease Stroke S/P CABG x 4 Skin cancer Social History marital status: number of children: 0 household members: spouse lives independently: Yes caregiver/support person: No housing: house pets and animals: No education level: college (bachelor's degree) occupational status: employed 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 travel history: recent ([place]) seatbelt use: always helmet use: Yes water heater temp set < 120 deg: Yes working smoke detector in home: Yes fire extinguisher in home: Yes carbon monox detector in home: Yes firearms in home: Yes firearms unloaded and locked: No (pt will make sure they are before the child is mobile) do you feel safe at home: Yes Smoking Status: Never smoker Tobacco: How many years used: 16 second hand exposure: No alcohol intake: former (very occasionally when not ) substance use type: does not use during the past year weight has: decreased > 10 lbs (Rx'd phentermine) well-balanced diet: daily or most days daily servings fruits/ve or more times/day caffeine: No Type(s) of exercise: walking, weight lifting and running frequency: daily additional social history: Pelvic rest due to heavy spotting, anxious to get back to a more normal exercise level as soon as it's safe. Meds Home Medications and Allergies Home Medications Medication Instructions Recorded Confirmed Type cholecalciferol (vitamin D3) 50 50 mcg PO DAILY 12/29/22 07/13/23 History mcg (2,000 unit) capsule fluticasone propionate 50 1 spray intranasal BID 12/29/22 07/13/23 History mcg/actuation nasal spray,suspension (Flonase Allergy Relief) krill oil 500 mg capsule mg PO 12/29/22 07/13/23 History mecobalamin (vitamin B12) 1,000 1,000 mcg PO DAILY 12/29/22 07/13/23 History mcg chewable tablet (B12 Active) vit no.95-ferrous 1 tab PO DAILY 12/29/22 07/25/23 History fumarate 28 mg-folic acid 800 mcg tablet ( Multivitamins) breast pump #1 ea 06/02/23 07/13/23 Rx acetaminophen 325 mg tablet 650 mg (2 x 325 mg) PO Q6HR PRN 07/30/23 Rx Pain, Mild (1-3) #30 tabs ibuprofen 600 mg tablet 600 mg PO Q6HR PRN Pain, Mild 07/30/23 Rx (1-3) #30 tabs labetalol 100 mg tablet 300 mg (3 x 100 mg) PO TID #90 tabs 07/31/23 Rx Allergies Allergy/AdvReac Type Severity Reaction Status Date / Time No Known Drug Allergies Allergy Unverified 07/13/23 15:17 Objective Labs 08/02/23 18:25 08/02/23 18:25 Labs: Laboratory Results - last 24 hr 08/02/23 18:25 WBC 12.5 H RBC 3.47 L Hgb 9.3 L Hct 28.0 L MCV 80.6 MCH 26.9 MCHC 33.4 RDW 14.3 Plt Count 479 H Neut % (Auto) 63.5 Lymph % (Auto) 26.6 [place] % (Auto) 6.7 Eos % (Auto) 2.6 Baso % (Auto) 0.6 Neut # (Auto) 7900 H Lymph # (Auto) 3300 [place] # (Auto) 800 Eos # (Auto) 300 Baso # (Auto) 100 Sodium 139 Potassium 4.0 Chloride 108 H Carbon Dioxide 26 BUN 12 Creatinine 0.63 Estimated GFR > 60 BUN/Creatinine Ratio 19.0 Glucose 86 Calcium 9.9 Total Bilirubin 0.4 AST 40 H ALT 44 H Alkaline Phosphatase 83 Total Protein 7.0 Albumin 4.1 Globulin 2.9 Albumin/Globulin Ratio 1.4 U Random Total Protein 27 H Urine Creatinine 13.2 Protein/Creatinin Ratio 2.04
[2023-08-02] MEDS: LACTATED RINGERS 1,000 ML 50 ML IV (20:37)
[2023-08-02] MEDS: MAGNESIUM SULFATE 4 GM/100 ML PIGGYBACK IV (20:43)
[2023-08-02] MEDS: MAGNESIUM SULFATE 20 GM/500 ML IV.SOLN IV (21:22)
[2023-08-02] MEDS: ACETAMINOPHEN 325 MG TABLET 975 MG PO (21:27)
[2023-08-02] MEDS: IBUPROFEN 600 MG TABLET PO (21:28)
[2023-08-02] MEDS: ZOLPIDEM 5 MG TABLET PO (21:28)
--- NOTE | 2023-08-02 22:54 | PC.NURSE ---
2230 - Patient feels like she could sleep. Patient states at home, one parent is always awake to make sure baby is safe. Parents are both very exhausted. RN offerred to take baby to nurse's station while both parents slept, parents okay with that plan. Baby brought to nurse's station and mom in bed hoping to sleep.
[2023-08-03] VITALS (16 sets, daily range): BP systolic 114–159; BP diastolic 78–103; PULSE 79–102; RESP 12–18; TEMP 36.3–36.8; O2SAT 95–98
[2023-08-03] MEDS: IBUPROFEN 600 MG TABLET PO ×3 (04:05→22:47)
[2023-08-03] MEDS: ACETAMINOPHEN 325 MG TABLET 975 MG PO ×3 (05:55→22:46)
[2023-08-03] MEDS: LABETALOL 100 MG TABLET 200 MG PO ×3 (05:56→22:46)
--- NOTE | 2023-08-03 06:15 | PC.NURSE ---
0350 - Patient complains of headache, rates 2/10. Ibuprofen given. Denies vision changes, epigastric pain. 0610 - Patient complains of headache still, states feels better though, rates 1/10. States her head feels a little dizzy after waking up. Will assess BP in 20 minutes after morning labetelol dose.
[2023-08-03] MEDS: MAGNESIUM SULFATE 20 GM/500 ML IV.SOLN IV ×2 (07:22→16:17)
--- NOTE | 2023-08-03 07:51 | P.PN_ITS ---
Subjective Subjective Date Patient Seen: 08/03/23 Time Patient Seen: 07:51 Interval history: Overnight patient's blood pressures have remained labile and she continues to have bitemporal headache relieved with Tylenol or ibuprofen. She denies visual changes or right upper quadrant pain. She is tolerating the magnesium sulfate will aside from some visual changes. Exam Vital Signs (past 8 hours): - 08/03/23 00:13 08/03/23 02:15 08/03/23 03:57 Temperature 97.7 F 97.5 F L 97.4 F L Pulse Rate 102 H 94 H 98 H Respiratory Rate 18 18 18 Blood Pressure 134/78 144/86 H 144/88 H Pulse Oximetry 95 97 98 08/03/23 05:56 08/03/23 06:14 08/03/23 06:35 Temperature 97.7 F Pulse Rate 91 H Respiratory Rate 18 Blood Pressure 159/103 H 144/90 H Pulse Oximetry 98 Narrative Exam Narrative: Exam unchanged from admission Objective Labs 08/02/23 18:25 08/02/23 18:25 Labs: Laboratory Results - last 24 hr 08/02/23 18:25 WBC 12.5 H RBC 3.47 L Hgb 9.3 L Hct 28.0 L MCV 80.6 MCH 26.9 MCHC 33.4 RDW 14.3 Plt Count 479 H Neut % (Auto) 63.5 Lymph % (Auto) 26.6 [place] % (Auto) 6.7 Eos % (Auto) 2.6 Baso % (Auto) 0.6 Neut # (Auto) 7900 H Lymph # (Auto) 3300 [place] # (Auto) 800 Eos # (Auto) 300 Baso # (Auto) 100 Sodium 139 Potassium 4.0 Chloride 108 H Carbon Dioxide 26 BUN 12 Creatinine 0.63 Estimated GFR > 60 BUN/Creatinine Ratio 19.0 Glucose 86 Calcium 9.9 Total Bilirubin 0.4 AST 40 H ALT 44 H Alkaline Phosphatase 83 Total Protein 7.0 Albumin 4.1 Globulin 2.9 Albumin/Globulin Ratio 1.4 U Random Total Protein 27 H Urine Creatinine 13.2 Protein/Creatinin Ratio 2.04 [facility] Medical History (Updated 08/02/23 @ 19:39 by Davide Mackay MD) Migraine without aura Depression White coat syndrome with hypertension Surgical History (Updated 12/29/22 @ 11:10 by Emerita Ruiz RN) H/O rhinoplasty [place] teeth extracted History of removal of skin mole Family History (Updated 12/29/22 @ 11:20 by Emerita Ruiz RN) Mother Menorrhagia History of hysterectomy Hypertension Hyperlipidemia Sister Menorrhagia PCOS (polycystic ovarian syndrome) Sister Menorrhagia Endometriosis Family/Other Menorrhagia Father Skin cancer Prostate cancer Grandfather Skin cancer Prostate cancer Bladder cancer Family/Other Prostate cancer Grandmother Breast cancer Lymphoma Grandmother Heart disease Diabetes mellitus Heart attack Hypertension Hyperlipidemia Grandfather Hyperlipidemia Hypertension Heart disease Stroke S/P CABG x 4 Skin cancer Social History marital status: number of children: 0 household members: spouse lives independently: Yes caregiver/support person: No housing: house pets and animals: No education level: college (bachelor's degree) occupational status: employed 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 travel history: recent ([place]) seatbelt use: always helmet use: Yes water heater temp set < 120 deg: Yes working smoke detector in home: Yes fire extinguisher in home: Yes carbon monox detector in home: Yes firearms in home: Yes firearms unloaded and locked: No (pt will make sure they are before the child is mobile) do you feel safe at home: Yes Smoking Status: Never smoker Tobacco: How many years used: 16 second hand exposure: No alcohol intake: former substance use type: does not use during the past year weight has: decreased > 10 lbs (Rx'd phentermine) well-balanced diet: daily or most days daily servings fruits/ve or more times/day caffeine: No Type(s) of exercise: walking, weight lifting and running frequency: daily additional social history: Pelvic rest due to heavy spotting, anxious to get back to a more normal exercise level as soon as it's safe. Assessment & Plan Assessment and plan (1) Preeclampsia in period: Status: Acute Assessment & Plan narrative: Due to the patient's continued lability insofar as her blood pressure, will add nifedipine 10 mg p.o. every 8 hours in addition to the labetalol 200 mg p.o. every 8 hours. Will continue to follow patient's blood pressure through the day and recheck LFTs later today. Time Spent With Patient Time with patient: less than 30 minutes Quality VTE Deep Vein Thrombosis/Pulmonary Embolism Present on Admission: No
[2023-08-03] MEDS: NIFEdipine 10 MG CAPSULE PO ×2 (08:26→14:47)
--- NOTE | 2023-08-03 09:23 | P.HP_ITS ---
History of Present Illness History of Present Illness Date Patient Seen: 08/03/23 Time Patient Seen: 07:30 Chief complaint: Preclampsia Narrative: Belen is a 33-year-old status post vaginal 07/28/2023 complicated by retained placenta requiring intraoperative removal. In addition the patient was noted to have preeclampsia without severe features during the course of her labor and but did not meet criteria for severe preeclampsia and did not receive magnesium sulfate. She was discharged on 100 mg labetalol t.i.d. and has been following her blood pressures at home. She presented on the evening of 08/02/2023 to the center to have her infant's bilirubin level checked and while she was there asked that her blood pressure be checked. Blood pressure was found to be in the severe range and patient had lab testing which showed elevation of both AST as well as the ALT and significant proteinuria on her protein to creatinine ratio. Her AST had been mildly elevated during her delivery admission but her ALT at that time was normal. Because of the transaminase elevations, significant proteinuria, and blood pressures in the severe range, the patient is admitted now for further evaluation and magnesium sulfate therapy. Patient states she has also been experiencing headaches which are bitemporal and sometimes behind her right eye but denies visual changes, or right upper quadrant pain. [facility] Medical History (Updated 08/02/23 @ 19:39 by Davide Mackay MD) Migraine without aura Depression White coat syndrome with hypertension Surgical History (Updated 12/29/22 @ 11:10 by Emerita Ruiz RN) H/O rhinoplasty [place] teeth extracted History of removal of skin mole Family History (Updated 12/29/22 @ 11:20 by Emerita Ruiz RN) Mother Menorrhagia History of hysterectomy Hypertension Hyperlipidemia Sister Menorrhagia PCOS (polycystic ovarian syndrome) Sister Menorrhagia Endometriosis Family/Other Menorrhagia Father Skin cancer Prostate cancer Grandfather Skin cancer Prostate cancer Bladder cancer Family/Other Prostate cancer Grandmother Breast cancer Lymphoma Grandmother Heart disease Diabetes mellitus Heart attack Hypertension Hyperlipidemia Grandfather Hyperlipidemia Hypertension Heart disease Stroke S/P CABG x 4 Skin cancer Social History marital status: number of children: 0 household members: spouse lives independently: Yes caregiver/support person: No housing: house pets and animals: No education level: college (bachelor's degree) occupational status: employed 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 travel history: recent ([place]) seatbelt use: always helmet use: Yes water heater temp set < 120 deg: Yes working smoke detector in home: Yes fire extinguisher in home: Yes carbon monox detector in home: Yes firearms in home: Yes firearms unloaded and locked: No (pt will make sure they are before the child is mobile) do you feel safe at home: Yes Smoking Status: Never smoker Tobacco: How many years used: 16 second hand exposure: No alcohol intake: former substance use type: does not use during the past year weight has: decreased > 10 lbs (Rx'd phentermine) well-balanced diet: daily or most days daily servings fruits/ve or more times/day caffeine: No Type(s) of exercise: walking, weight lifting and running frequency: daily additional social history: Pelvic rest due to heavy spotting, anxious to get back to a more normal exercise level as soon as it's safe. Meds Home Medications and Allergies Home Medications Medication Instructions Recorded Confirmed Type cholecalciferol (vitamin D3) 50 50 mcg PO DAILY 12/29/22 08/02/23 History mcg (2,000 unit) capsule fluticasone propionate 50 1 spray intranasal BID 12/29/22 08/02/23 History mcg/actuation nasal spray,suspension (Flonase Allergy Relief) krill oil 500 mg capsule See Rx Instructions .Route .COMPLEX 12/29/22 08/02/23 History mecobalamin (vitamin B12) 1,000 1,000 mcg PO DAILY 12/29/22 08/02/23 History mcg chewable tablet (B12 Active) vit no.95-ferrous 1 tab PO DAILY 12/29/22 08/02/23 History fumarate 28 mg-folic acid 800 mcg tablet ( Multivitamins) breast pump #1 ea 06/02/23 08/02/23 Rx acetaminophen 325 mg tablet 650 mg (2 x 325 mg) PO Q6HR PRN 07/30/23 08/02/23 Rx Pain, Mild (1-3) #30 tabs ibuprofen 600 mg tablet 600 mg PO Q6HR PRN Pain, Mild 07/30/23 08/02/23 Rx (1-3) #30 tabs labetalol 100 mg tablet 300 mg (3 x 100 mg) PO TID #90 tabs 07/31/23 08/02/23 Rx Allergies Allergy/AdvReac Type Severity Reaction Status Date / Time No Known Drug Allergies Allergy Unverified 07/13/23 15:17 Review of Systems Review of Systems Narrative: Problem-specific ROS positives included in HPI Exam Vital Signs (past 8 hours): - 08/03/23 02:15 08/03/23 03:57 08/03/23 05:56 Temperature 97.5 F L 97.4 F L Pulse Rate 94 H 98 H 91 H Respiratory Rate 18 18 Blood Pressure 144/86 H 144/88 H 159/103 H Pulse Oximetry 97 98 Oxygen Delivery Method 08/03/23 06:14 08/03/23 06:35 08/03/23 07:35 Temperature 97.7 F 98.2 F Pulse Rate 84 Respiratory Rate 18 16 Blood Pressure 144/90 H 154/90 H Pulse Oximetry 98 98 Oxygen Delivery Method 08/03/23 07:35 Temperature Pulse Rate Respiratory Rate Blood Pressure Pulse Oximetry 98 Oxygen Delivery Method Room Air Oxygen Delivery Method Room Air Const General: cooperative and comfortable Nutritional Appearance: average body habitus Orientation: alert and oriented x3 HENMT Head: normal to inspection, atraumatic and abrasion Ears: hearing grossly normal bilaterally Face and sinus: face symmetric Eyes General: appearance normal, both eyes and all related structures Conjunctivae: conjunctivae normal Sclera: sclerae normal EOM: EOM intact bilaterally Neck Neck: normal visual inspection Resp Effort & Inspection: normal respiratory effort and able to speak in complete sentences Auscultation: clear to auscultation bilaterally Cardio Rate: regular rate Rhythm: regular rhythm Heart Sounds: S1 normal, S2 normal and no murmurs GI Inspection: normal to inspection Palpation: soft and no hepatosplenomegaly External Female Exam: other (No significant bleeding noted) Neuro General: patient alert, patient awake and patient oriented x3 Cranial Nerves: CN's II-XI intact bilaterally and EOM intact bilaterally Cognition: normal cognition Speech: speech normal Gait: normal gait DTR's: Rt Patellar: 3+, Lt Patellar: 3+, Rt Ankle: 3+ and Lt Ankle: 3+ Extrem General: no calf tenderness Psych Appearance: grossly normal Mental Status: mental status grossly normal Speech and Movement: speech and movement normal Mood: congruent mood Affect: normal affect Attitude: cooperative Thought Process: normal Thought Content: normal Judgment: judgment good Objective Labs 08/02/23 18:25 08/02/23 18:25 Labs: Laboratory Results - last 24 hr 08/02/23 18:25 WBC 12.5 H RBC 3.47 L Hgb 9.3 L Hct 28.0 L MCV 80.6 MCH 26.9 MCHC 33.4 RDW 14.3 Plt Count 479 H Neut % (Auto) 63.5 Lymph % (Auto) 26.6 [place] % (Auto) 6.7 Eos % (Auto) 2.6 Baso % (Auto) 0.6 Neut # (Auto) 7900 H Lymph # (Auto) 3300 [place] # (Auto) 800 Eos # (Auto) 300 Baso # (Auto) 100 Sodium 139 Potassium 4.0 Chloride 108 H Carbon Dioxide 26 BUN 12 Creatinine 0.63 Estimated GFR > 60 BUN/Creatinine Ratio 19.0 Glucose 86 Calcium 9.9 Total Bilirubin 0.4 AST 40 H ALT 44 H Alkaline Phosphatase 83 Total Protein 7.0 Albumin 4.1 Globulin 2.9 Albumin/Globulin Ratio 1.4 U Random Total Protein 27 H Urine Creatinine 13.2 Protein/Creatinin Ratio 2.04 Assessment & Plan Assessment and plan (1) Preeclampsia in period: Status: Acute Plan Patient understands the rationale for admission and plan for management Time Spent With Patient Time with patient: less than 30 minutes Quality VTE Deep Vein Thrombosis/Pulmonary Embolism Present on Admission: No
--- NOTE | 2023-08-03 10:14 | PC.NURSE ---
pt pumping now, b/p still 147/96. c/o h/a 2 on pain scale, states dull ache behind the eyes. otherwise no other complaints at this time. relexes at 0735 2-3+ without clonus, lungs clear. now still 2-3+ reflexes without clonus.
--- NOTE | 2023-08-03 12:15 | PC.NURSE ---
At 095 pt is pumping, obtaining greater than 2oz. At 1035, Ashly with visiting with pt for Consult, also gave information for [facility] mother baby program, pt to go online and fill out application and interest form.
--- NOTE | 2023-08-03 16:16 | PM.PN.1 ---
Subjective Subjective Date Patient Seen: 08/03/23 Time Patient Seen: 16:16 Interval history: Patient readmitted for preeclampsia with severe features based on blood pressure. Patient also with increasing LFTs since discharge. Patient was started on magnesium sulfate. Patient also was started on nifedipine along with her labetalol. Patient has headaches that she has not sure if it is headache or pressure sensation and not feeling right inner head from the magnesium. She denies specifically scotomata epigastric pain. Patient denies significant pelvic cramping. No significant vaginal bleeding. Patient was unable to stand without feeling very wobbly. She was afraid it was her blood pressure but discussed that this is a side effect from the magnesium that she is on. Exam Vital Signs (past 8 hours): - 08/03/23 09:35 08/03/23 12:00 08/03/23 13:00 Temperature 98.3 F 98.3 F Pulse Rate 86 93 H 90 Respiratory Rate 16 16 16 Blood Pressure 147/96 H 144/91 H 129/90 Pulse Oximetry 98 95 97 Oxygen Delivery Method Room Air Narrative Exam Narrative: Abdomen is soft, nontender. Uterus is firm, at U -1, nontender. Mild lochia. Extremities with out edema and nontender. Objective Labs 08/02/23 18:25 08/02/23 18:25 Labs: Laboratory Results - last 24 hr 08/02/23 18:25 WBC 12.5 H RBC 3.47 L Hgb 9.3 L Hct 28.0 L MCV 80.6 MCH 26.9 MCHC 33.4 RDW 14.3 Plt Count 479 H Neut % (Auto) 63.5 Lymph % (Auto) 26.6 [place] % (Auto) 6.7 Eos % (Auto) 2.6 Baso % (Auto) 0.6 Neut # (Auto) 7900 H Lymph # (Auto) 3300 [place] # (Auto) 800 Eos # (Auto) 300 Baso # (Auto) 100 Sodium 139 Potassium 4.0 Chloride 108 H Carbon Dioxide 26 BUN 12 Creatinine 0.63 Estimated GFR > 60 BUN/Creatinine Ratio 19.0 Glucose 86 Calcium 9.9 Total Bilirubin 0.4 AST 40 H ALT 44 H Alkaline Phosphatase 83 Total Protein 7.0 Albumin 4.1 Globulin 2.9 Albumin/Globulin Ratio 1.4 U Random Total Protein 27 H Urine Creatinine 13.2 Protein/Creatinin Ratio 2.04 [facility] Medical History (Updated 08/02/23 @ 19:39 by Davide Mackay MD) Migraine without aura Depression White coat syndrome with hypertension Surgical History (Updated 12/29/22 @ 11:10 by Emerita Ruiz, JANET) H/O rhinoplasty [place] teeth extracted History of removal of skin mole Family History (Updated 12/29/22 @ 11:20 by Emerita Ruiz, RN) Mother Menorrhagia History of hysterectomy Hypertension Hyperlipidemia Sister Menorrhagia PCOS (polycystic ovarian syndrome) Sister Menorrhagia Endometriosis Family/Other Menorrhagia Father Skin cancer Prostate cancer Grandfather Skin cancer Prostate cancer Bladder cancer Family/Other Prostate cancer Grandmother Breast cancer Lymphoma Grandmother Heart disease Diabetes mellitus Heart attack Hypertension Hyperlipidemia Grandfather Hyperlipidemia Hypertension Heart disease Stroke S/P CABG x 4 Skin cancer Social History marital status: number of children: 0 household members: spouse lives independently: Yes caregiver/support person: No housing: house pets and animals: No education level: college (bachelor's degree) occupational status: employed 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[employer]) special karol needs: No travel history: recent ([place]) seatbelt use: always helmet use: Yes water heater temp set < 120 deg: Yes working smoke detector in home: Yes fire extinguisher in home: Yes carbon monox detector in home: Yes firearms in home: Yes firearms unloaded and locked: No (pt will make sure they are before the child is mobile) do you feel safe at home: Yes Smoking Status: Never smoker Tobacco: How many years used: 16 second hand exposure: No alcohol intake: former substance use type: does not use during the past year weight has: decreased > 10 lbs (Rx'd phentermine) well-balanced diet: daily or most days daily servings fruits/ve or more times/day caffeine: No Type(s) of exercise: walking, weight lifting and running frequency: daily additional social history: Pelvic rest due to heavy spotting, anxious to get back to a more normal exercise level as soon as it's safe. Assessment & Plan Assessment and plan (1) Preeclampsia in period: Status: Acute Assessment & Plan narrative: Patient's blood pressures are improving. Decision made to DC the magnesium after 24 hour which will be at 8:00 p.m[facility]. Patient will be monitored for blood pressure and preeclampsia symptoms. Repeat labs in the a.m.. Patient is to let the nurses know immediately if she begins having scotomata, significantly increased headache, any sensation of just not feeling right. Time Spent With Patient Time with patient: less than 30 minutes Quality VTE Deep Vein Thrombosis/Pulmonary Embolism Present on Admission: No
--- NOTE | 2023-08-03 18:14 | PC.NURSE ---
mg+ level drawn per pt request.
--- NOTE | 2023-08-03 18:25 | PC.NURSE ---
pt pumping now.
[2023-08-03 19:04] LABS: Magnesium 7.3 mg/dL (1.6-2.3)
--- NOTE | 2023-08-03 19:57 | PC.NURSE ---
Magnesium and LR discontinued at 1930. Pt up ambulating to bathroom with assistance from , large void. Pt states that she is feeling more stable on her feet since MgSo4 discontinued.
[2023-08-04 02:31] VITALS: BP 129/86; PULSE 78; RESP 14; TEMP 37.1; O2SAT 97
[2023-08-04] MEDS: IBUPROFEN 600 MG TABLET PO (04:38)
[2023-08-04 05:33] LABS: Add Manual Diff / Slide Review NO; Basophils Absolute Auto 0 /uL (0-100); Basophils Percent Auto 0.3 % (0-2); Eosinophils Absolute Auto 200 /uL (0-450); Eosinophils Percent Auto 2.3 % (2-4); Hematocrit 29.8 % (36-46); Hemoglobin 9.9 g/dL (12.0-16.0); Lymphocytes Absolute Auto 2200 /uL (1100-4500); Lymphocytes Percent Auto 21.6 % (25-40); Mean Corpuscular HGB Conc 33.4 % (30-36); Mean Corpuscular Volume 80.8 fL (80-100); Monocytes Absolute Auto 700 /uL (0-900); Monocytes Percent Auto 6.6 % (3-14); Neutrophils Absolute Auto 7000 /uL (1500-7000); Neutrophils Percent Auto 69.2 % (50-75); Platelet Count 549 X10^3/uL (150-400); Red Blood Cell Count 3.69 X10^6/uL (4.0-5.2); Red Cell Distribution Width 14.6 % (11.6-14.8); White Blood Cell Count 10.1 X10^3/uL (4.5-11.0)
[2023-08-04 05:46] LABS: Alanine Aminotransferase 32 IU/L (<35); Albumin 3.8 g/dL (3.5-5.0); Albumin Globulin Ratio 1.2 (1.0-2.8); Alkaline Phosphatase 84 U/L (38-126); Aspartate Aminotransferase 28 IU/L (14-36); BUN Creatinine Ratio 20.5 (6-22); Bilirubin Total 0.3 mg/dL (0.2-1.3); Blood Urea Nitrogen 16 mg/dL (7-17); Calcium 7.9 mg/dL (8.4-10.2); Carbon Dioxide 21 mmol/L (22-32); Chloride 104 mmol/L (98-107); Estimated Glomerular Filt Rate > 60 mL/min (>60); Globulin 3.1 g/dL (1.7-4.1); Glucose 99 mg/dL (70-100); HEMOLYSIS < 15 (0-50); Potassium 3.7 mmol/L (3.4-5.1); Sodium 135 mmol/L (137-145); Total Protein 6.9 g/dL (6.3-8.2)
[2023-08-04] MEDS: LABETALOL 100 MG TABLET 200 MG PO (06:36)
[2023-08-04] MEDS: ACETAMINOPHEN 325 MG TABLET 975 MG PO (06:36)
[2023-08-04] MEDS: NIFEdipine 10 MG CAPSULE PO (06:55)
[2023-08-04 06:56] VITALS: BP 144/99
[2023-08-04 08:00] VITALS: BP 121/78; PULSE 89; RESP 18; O2SAT 98
--- NOTE | 2023-08-04 09:43 | P.DS_ITS ---
History of Present Illness History of Present Illness Date Patient Seen: 08/04/23 Time Patient Seen: 09:43 Chief complaint: Preclampsia Narrative: Belen is a 33-year-old status post vaginal 07/28/2023 complicated by retained placenta requiring intraoperative removal. In addition the patient was noted to have preeclampsia without severe features during the course of her labor and but did not meet criteria for severe preeclampsia and did not receive magnesium sulfate. She was discharged on 100 mg labetalol t.i.d. and has been following her blood pressures at home. She presented on the evening of 08/02/2023 to the center to have her infant's bilirubin level checked and while she was there asked that her blood pressure be checked. Blood pressure was found to be in the severe range and patient had lab testing which showed elevation of both AST as well as the ALT and significant proteinuria on her protein to creatinine ratio. Her AST had been mildly elevated during her delivery admission but her ALT at that time was normal. Because of the transaminase elevations, significant proteinuria, and blood pressures in the severe range, the patient is admitted now for further evaluation and magnesium sulfate therapy. Patient states she has also been experiencing headaches which are bitemporal and sometimes behind her right eye but denies visual changes, or right upper quadrant pain. Discharge Providers Provider Date of admission: 08/02/23 17:49 Discharge Date: 08/04/23 Primary care physician: Monty SALEEM Provider Discharge provider: Davide Mackay MD Summary Hospital Course Discharge Diagnosis: preeclampsia with severe features Hospital Course: Belen was admitted on 08/02/2023 with preeclampsia with severe features and initiated on intravenous magnesium sulfate. She also required oral labetalol and nifedipine for adequate control of blood pressure which was under excellent control after 24 hours of IV magnesium sulfate. She has no other symptoms were finding of severe preeclampsia at the time of discharge, is ambulating independently, tolerating a regular diet, and is having minimal lochia. She will be discharged at this time to home after counseling regarding precautionary symptoms, limitations of activity, medications, and plans for follow-up which will be in [address] Cardoza. Medications at discharge will include resumption of all preadmission medications as well as labetalol 400 mg p.o. t.i.d. and nifedipine 10 mg every 8 hours. Status at Discharge Cognitive/behavioral status at discharge: oriented Functional status at discharge: independent ambulation Overall status at discharge: patient is back to baseline Time Spent with Patient Time spent: Less than 30 minutes Exam Vital Signs (past 8 hours): - 08/04/23 02:31 08/04/23 06:56 Temperature 98.7 F Pulse Rate 78 Respiratory Rate 14 Blood Pressure 129/86 144/99 H Pulse Oximetry 97 Oxygen Delivery Method Room Air Const General: cooperative and comfortable Nutritional Appearance: average body habitus Orientation: alert and oriented x3 HENMT Head: normal to inspection, atraumatic and abrasion Ears: hearing grossly normal bilaterally Face and sinus: face symmetric Eyes General: appearance normal, both eyes and all related structures Conjunctivae: conjunctivae normal Sclera: sclerae normal EOM: EOM intact bilaterally Neck Neck: normal visual inspection Resp Effort & Inspection: normal respiratory effort and able to speak in complete sentences Auscultation: clear to auscultation bilaterally Cardio Rate: regular rate Rhythm: regular rhythm Heart Sounds: S1 normal, S2 normal and no murmurs GI Inspection: normal to inspection Palpation: soft and no hepatosplenomegaly External Female Exam: other (No significant bleeding noted) Extrem General: no calf tenderness Psych Appearance: grossly normal Mental Status: mental status grossly normal Speech and Movement: speech and movement normal Mood: congruent mood Affect: normal affect Attitude: cooperative Thought Process: normal Thought Content: normal Judgment: judgment good Objective Labs 08/04/23 05:23 08/04/23 05:23 Labs: Laboratory Results - last 24 hr 08/03/23 08/04/23 18:15 05:23 WBC 10.1 RBC 3.69 L Hgb 9.9 L Hct 29.8 L MCV 80.8 MCH 27.0 MCHC 33.4 RDW 14.6 Plt Count 549 H Neut % (Auto) 69.2 Lymph % (Auto) 21.6 L [place] % (Auto) 6.6 Eos % (Auto) 2.3 Baso % (Auto) 0.3 Neut # (Auto) 7000 Lymph # (Auto) 2200 [place] # (Auto) 700 Eos # (Auto) 200 Baso # (Auto) 0 Sodium 135 L Potassium 3.7 Chloride 104 Carbon Dioxide 21 L BUN 16 Creatinine 0.78 Estimated GFR > 60 BUN/Creatinine Ratio 20.5 Glucose 99 Calcium 7.9 L Magnesium 7.3 H* Total Bilirubin 0.3 AST 28 ALT 32 Alkaline Phosphatase 84 Total Protein 6.9 Albumin 3.8 Globulin 3.1 Albumin/Globulin Ratio 1.2 PFSH Medical History Migraine without aura Depression White coat syndrome with hypertension Surgical History H/O rhinoplasty [place] teeth extracted History of removal of skin mole Family History Mother Menorrhagia History of hysterectomy Hypertension Hyperlipidemia Sister Menorrhagia PCOS (polycystic ovarian syndrome) Sister Menorrhagia Endometriosis Family/Other Menorrhagia Father Skin cancer Prostate cancer Grandfather Skin cancer Prostate cancer Bladder cancer Family/Other Prostate cancer Grandmother Breast cancer Lymphoma Grandmother Heart disease Diabetes mellitus Heart attack Hypertension Hyperlipidemia Grandfather Hyperlipidemia Hypertension Heart disease Stroke S/P CABG x 4 Skin cancer Social History marital status: number of children: 0 household members: spouse lives independently: Yes caregiver/support person: No housing: house pets and animals: No education level: college (bachelor's degree) occupational status: employed 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[employer]) special karol needs: No travel history: recent ([place]) seatbelt use: always helmet use: Yes water heater temp set < 120 deg: Yes working smoke detector in home: Yes fire extinguisher in home: Yes carbon monox detector in home: Yes firearms in home: Yes firearms unloaded and locked: No (pt will make sure they are before the child is mobile) do you feel safe at home: Yes Smoking Status: Never smoker Tobacco: How many years used: 16 second hand exposure: No alcohol intake: former substance use type: does not use during the past year weight has: decreased > 10 lbs (Rx'd phentermine) well-balanced diet: daily or most days daily servings fruits/ve or more times/day caffeine: No Type(s) of exercise: walking, weight lifting and running frequency: daily additional social history: Pelvic rest due to heavy spotting, anxious to get back to a more normal exercise level as soon as it's safe. Discharge Assessment & Plan Assessment and Plan Assessment: preeclampsia with severe features Plan of Treatment: Discharged with dual antihypertensive therapy and close observation for exacerbation of her blood pressures at home. Follow-up will be in 1 week or as needed. Discharge Plan Discharge Plan Patient Disposition: Home Provider Discharge Comment: Please review the written instructions you received when you were discharged from the. Your follow-up appointment will be scheduled with Dr. Cardoza in 1 week and we look forward to seeing you then. If however in the meanwhile you have any concerns, questions, or problems, please contact the office either by phone at [phone], or via the patient portal. Discharge orders & Medications Prescriptions: Continued (DME) breast pump Device See Rx Instructions .Route Qty: 1 0RF Rx Instructions: Lactating Mother PNV cmb#95-ferrous fumarate-FA [ Multivitamins] 28 mg iron- 800 mcg tablet 1 tab PO DAILY krill oil 500 mg capsule See Rx Instructions .ROUTE .COMPLEX Rx Instructions: Take as directed cholecalciferol (vitamin D3) 50 mcg (2,000 unit) capsule 50 mcg PO DAILY Discontinued labetalol 100 mg tablet 300 mg PO TID Qty: 90 1RF No Action levothyroxine 50 mcg capsule 50 mcg PO DAILY Qty: 30 5RF nifedipine 10 mg capsule 10 mg PO Q8H Qty: 90 2RF labetalol 100 mg tablet 400 mg PO TID hydroxyzine HCl 10 mg tablet 10 mg PO TID PRN (Reason: anxiety) Qty: 30 2RF citalopram [Celexa] 10 mg tablet 10 mg PO DAILY Qty: 30 11RF Follow up/Referrals: ProviderMonty [Primary Care Provider] - Discharge Health Status Multidrug resistant organism: No MDRO Diet/Activity/Treatments Diet: Diet as Tolerated Activity: As tolerated Other treatments: Please check blood pressure daily before and after taking antihypertensive medications. Please notify the office with persistent blood pressure in the 150/100 range and/or symptoms of severe blood pressure elevation such as severe headache blurred vision, and right upper quadrant pain. Skin/Wound/Dressing Care Report to your healthcare provider any signs of infection, such as:: chills, fever and increased pain Dressing: N/A Visit Report/Discharge Packet Stand Alone Forms: Discharge: Care Discharge Data Primary Care Provider: Monty Springer Attending Provider: Davide Mackay Admit Date/Time: 08/02/23 17:49 Quality VTE Deep Vein Thrombosis/Pulmonary Embolism Present on Admission: No
--- NOTE | 2023-08-04 10:26 | PC.NURSE ---
Education and DC info discussed with patient. Given DC paperwork, signed. Pt states understanding.
== END 2023-08-04 11:20 | disposition home or self-care (01) ==
PROVIDERS: Specialist; Admitting Provider Obstetrics & Gynecology; Referring Provider Obstetrics & Gynecology; Visit Provider Obstetrics & Gynecology
DX: O14.15 Severe pre-eclampsia, complicating the puerperium (principal)
CPT/HCPCS: 36415; 80053; 82570; 83735; 84156; 85025; G0378; G0379; J3475

== ENCOUNTER → 2023-08-24 14:40 | Outpatient (CLI) | payer OTHER, SELFPAY ==
[2023-08-02 19:50] VITALS: BMI 32.9
[2023-08-24 15:17] LABS: Add Manual Diff / Slide Review NO; Basophils Absolute Auto 0 /uL (0-100); Basophils Percent Auto 0.7 % (0-2); Eosinophils Absolute Auto 200 /uL (0-450); Eosinophils Percent Auto 2.7 % (2-4); Hematocrit 37.1 % (36-46); Lymphocytes Absolute Auto 1900 /uL (1100-4500); Lymphocytes Percent Auto 31.1 % (25-40); Mean Corpuscular HGB Conc 32.5 % (30-36); Mean Corpuscular Hemoglobin 26.1 PG (26-34); Mean Corpuscular Volume 80.5 fL (80-100); Monocytes Absolute Auto 500 /uL (0-900); Monocytes Percent Auto 8.5 % (3-14); Neutrophils Absolute Auto 3500 /uL (1500-7000); Platelet Count 412 X10^3/uL (150-400); Red Blood Cell Count 4.61 X10^6/uL (4.0-5.2); Red Cell Distribution Width 14.4 % (11.6-14.8); White Blood Cell Count 6.1 X10^3/uL (4.5-11.0)
[2023-08-24 20:49] LABS: Protein (Total) Urine Random 24 mg/dL (0-12)
[2023-08-24 20:57] LABS: Alanine Aminotransferase 32 IU/L (<35); Aspartate Aminotransferase 51 IU/L (14-36); BUN Creatinine Ratio 13.5 (6-22); Blood Urea Nitrogen 15 mg/dL (7-17); Estimated Glomerular Filt Rate > 60 mL/min (>60); Uric Acid 5.5 mg/dL (2.5-6.2)
[2023-08-24 21:09] LABS: Creatinine Urine Random 32.49 mg/dL; Protein Creatinine Ratio Urine 0.73 GRAM/24H
== END ==
PROVIDERS: Referring Provider Obstetrics & Gynecology; Visit Provider Obstetrics & Gynecology
DX: O11.9 Pre-existing hypertension with pre-eclampsia, unspecified trimester (principal); Z3A.36 36 weeks gestation of pregnancy
CPT/HCPCS: 36415; 82565; 82570; 84156; 84450; 84460; 84520; 84550; 85025

== ENCOUNTER → 2023-08-28 10:15 | Outpatient (CLI) | payer OTHER, SELFPAY ==
[2023-08-02 19:50] VITALS: BMI 32.9
[2023-08-28 10:35] LABS: Add Manual Diff / Slide Review NO; Basophils Absolute Auto 100 /uL (0-100); Basophils Percent Auto 0.9 % (0-2); Eosinophils Absolute Auto 100 /uL (0-450); Eosinophils Percent Auto 2.4 % (2-4); Hematocrit 36.7 % (36-46); Lymphocytes Absolute Auto 1800 /uL (1100-4500); Lymphocytes Percent Auto 29.7 % (25-40); Mean Corpuscular HGB Conc 32.8 % (30-36); Mean Corpuscular Hemoglobin 26.2 PG (26-34); Mean Corpuscular Volume 79.7 fL (80-100); Monocytes Absolute Auto 400 /uL (0-900); Monocytes Percent Auto 6.5 % (3-14); Neutrophils Absolute Auto 3800 /uL (1500-7000); Neutrophils Percent Auto 60.5 % (50-75); Platelet Count 406 X10^3/uL (150-400); Red Cell Distribution Width 13.9 % (11.6-14.8); White Blood Cell Count 6.2 X10^3/uL (4.5-11.0)
[2023-08-28 10:59] LABS: Alanine Aminotransferase 30 IU/L (<35); Aspartate Aminotransferase 23 IU/L (14-36); BUN Creatinine Ratio 18.8 (6-22); Blood Urea Nitrogen 16 mg/dL (7-17); Estimated Glomerular Filt Rate > 60 mL/min (>60); Uric Acid 5.8 mg/dL (2.5-6.2)
[2023-08-28 11:48] LABS: Protein (Total) Urine Random 17 mg/dL (0-12); Protein Creatinine Ratio Urine 0.89 GRAM/24H
== END ==
PROVIDERS: Referring Provider Obstetrics & Gynecology; Visit Provider Obstetrics & Gynecology
DX: O16.3 Unspecified maternal hypertension, third trimester (principal); O09.513 Supervision of elderly primigravida, third trimester; O14.95 Unspecified pre-eclampsia, complicating the puerperium; O11.9 Pre-existing hypertension with pre-eclampsia, unspecified trimester
CPT/HCPCS: 36415; 82565; 82570; 84156; 84450; 84460; 84520; 84550; 85025

== ENCOUNTER → 2023-09-01 11:09 | Outpatient (CLI) | payer OTHER, SELFPAY ==
[2023-08-02 19:50] VITALS: BMI 32.9
[2023-09-01 13:21] LABS: Add Manual Diff / Slide Review NO; Basophils Absolute Auto 0 /uL (0-100); Basophils Percent Auto 0.7 % (0-2); Eosinophils Absolute Auto 100 /uL (0-450); Eosinophils Percent Auto 1.8 % (2-4); Hematocrit 38.4 % (36-46); Hemoglobin 12.3 g/dL (12.0-16.0); Lymphocytes Absolute Auto 1700 /uL (1100-4500); Lymphocytes Percent Auto 33.7 % (25-40); Mean Corpuscular HGB Conc 32.1 % (30-36); Mean Corpuscular Volume 81.2 fL (80-100); Monocytes Absolute Auto 400 /uL (0-900); Neutrophils Absolute Auto 2900 /uL (1500-7000); Neutrophils Percent Auto 55.8 % (50-75); Platelet Count 399 X10^3/uL (150-400); Red Blood Cell Count 4.72 X10^6/uL (4.0-5.2); Red Cell Distribution Width 13.8 % (11.6-14.8); White Blood Cell Count 5.2 X10^3/uL (4.5-11.0)
[2023-09-01 13:48] LABS: Aspartate Aminotransferase 31 IU/L (14-36); BUN Creatinine Ratio 18.6 (6-22); Blood Urea Nitrogen 16 mg/dL (7-17); Estimated Glomerular Filt Rate > 60 mL/min (>60); Uric Acid 5.3 mg/dL (2.5-6.2)
== END ==
PROVIDERS: Referring Provider Obstetrics & Gynecology; Visit Provider Obstetrics & Gynecology
DX: O14.95 Unspecified pre-eclampsia, complicating the puerperium (principal); R03.0 Elevated blood-pressure reading, without diagnosis of hypertension
CPT/HCPCS: 36415; 84450; 84550; 85025

== ENCOUNTER → 2023-09-08 15:02 | Outpatient (CLI) | payer OTHER, SELFPAY ==
[2023-08-02 19:50] VITALS: BMI 32.9
[2023-09-08 15:45] LABS: Add Manual Diff / Slide Review NO; Basophils Absolute Auto 0 /uL (0-100); Basophils Percent Auto 0.7 % (0-2); Eosinophils Absolute Auto 100 /uL (0-450); Eosinophils Percent Auto 1.5 % (2-4); Hematocrit 37.4 % (36-46); Hemoglobin 12.4 g/dL (12.0-16.0); Lymphocytes Absolute Auto 2100 /uL (1100-4500); Lymphocytes Percent Auto 30.5 % (25-40); Mean Corpuscular HGB Conc 33.3 % (30-36); Mean Corpuscular Hemoglobin 26.2 PG (26-34); Mean Corpuscular Volume 78.8 fL (80-100); Monocytes Absolute Auto 600 /uL (0-900); Monocytes Percent Auto 8.6 % (3-14); Neutrophils Absolute Auto 4000 /uL (1500-7000); Neutrophils Percent Auto 58.7 % (50-75); Platelet Count 434 X10^3/uL (150-400); Red Blood Cell Count 4.74 X10^6/uL (4.0-5.2); Red Cell Distribution Width 13.8 % (11.6-14.8); White Blood Cell Count 6.8 X10^3/uL (4.5-11.0)
[2023-09-08 17:18] LABS: Free T4, Direct Thyroxine 0.81 ng/dL (0.78-2.19)
[2023-09-08 17:32] LABS: Thyroid Stimulating Hormone 1.46 uIU/mL (0.47-4.68)
== END ==
PROVIDERS: Referring Provider Obstetrics & Gynecology; Visit Provider Obstetrics & Gynecology
DX: O72.1 Other immediate postpartum hemorrhage (principal)
CPT/HCPCS: 36415; 84439; 84443; 85025

== ENCOUNTER → 2023-11-11 09:54 | Outpatient (CLI) | payer OTHER, SELFPAY ==
[2023-08-02 19:50] VITALS: BMI 32.9
[2023-11-11 11:17] LABS: Free T4, Direct Thyroxine 0.97 ng/dL (0.78-2.19)
== END ==
PROVIDERS: Referring Provider Obstetrics & Gynecology; Visit Provider Obstetrics & Gynecology
DX: E03.9 Hypothyroidism, unspecified (principal)
CPT/HCPCS: 36415; 84439; 84443